=== PATIENT | female | born 1985 | race Caucasian/White ===

== ENCOUNTER 2017-05-20 11:47 | Emergency (ER) | payer OTHER ==
[~2017-05-20] VITALS: Ht 167.6 cm; Wt 99.6 kg
[2017-05-20 11:52] VITALS: TEMP 36.9; Ht 167.6 cm; Wt 99.6 kg
[2017-05-20] MEDS ORDERED: LEVO125T72 PO (12:11)
[2017-05-20] MEDS ORDERED: CEPHALEXIN MONOHYDRATE 250 MG CAP PO STA (12:16)
[2017-05-20] MEDS ORDERED: XYLOCAINE 1%/SOD BICARB 20 ML VIAL INFIL STA (12:16)
[2017-05-20] MEDS ORDERED: SULFAMETHOXAZOLE/TRIMETHOPRIM DS 800/160MG TAB PO STA (12:16)
--- NOTE | 2017-05-20 12:19 | EMERGENCY ROOM VISIT NOTE ---
History Report prepared by Dominga: Wes Ca Under the Supervision of: Dr. Campos Goff M.D. First contact with patient: 12:03 Chief Complaint: BITE Stated Complaint: BITE ON RIGHT FOOT History of Present Illness The patient is a 31 year old female who presents to the Emergency Room with complaints of a persistent wound on her right nunn and foot that she noticed yesterday. The patient says that she does not remember scraping her right foot. She adds that she has been having associated pain around the area, but does not want any pain medications currently. She rates her pain as a 7 out of 10 in severity. The patient has multiple sores to her right arm, but she says that those are from when she had a virus when she was younger. Source of History: patient Onset: Noticed yesterday Position: ankle (right) Quality: other (wound) Timing: other (persistent) Note: Associated symptoms: Right ankle and foot pain. Review of Systems See HPI for pertinent positives & negatives. A total of 10 systems reviewed and were otherwise negative. Past Medical & Surgical Medical Problems: (1) Hypothyroidism Family History No pertinent family history Social History Marital Status: Housing Status: lives with family Occupation Status: unemployed Current/Historical Medications Scheduled Cephalexin Monohydrate (Keflex), 1 CAP PO QID Levothyroxine Sodium (Synthroid), 125 MCG PO DAILY Sulfa/Trimethoprim (Bactrim Ds 800MG/160MG), 1 TAB PO BID Allergies Coded Allergies: No Known Allergies (Unverified , 05/20/17) Physical Exam Vital Signs Date Time Temp Pulse Resp B/P (MAP) Pulse Ox O2 Delivery O2 Flow Rate FiO2 05/20/17 13:13 74 16 124/76 97 05/20/17 11:52 36.9 67 16 122/79 95 Physical Exam GENERAL: Patient is a healthy-appearing well-nourished 31 year old female. HEAD: Normocephalic atraumatic EYES: Ocular movements intact pupils equal and react to light OROPHARYNX mucous membranes are moist no exudates present no erythema or edema present NECK: Supple no nuchal rigidity CHEST: Good equal expansion LUNGS: Clear and equal to auscultation CARDIAC: Normal S1 and S2 ABDOMEN: Soft nontender no guarding BACK: No CVA tenderness EXTREMITIES: Abscess that is actively draining puss to right ankle area that is 2 inches by 2 inches. Ankle has good range of motion free of pain, no evidence of ankle involvement of the infection. NEURO: Patient is following commands and answering questions appropriately. Alert and oriented x3 Cranial Nerves 2-12 grossly intact Medical Decision & Procedures Medications Administered Medications (Trade) Dose Ordered Sig/Nahomi Route Start Time Stop Time Status Last Admin Dose Admin Cephalexin Monohydrate (Keflex Cap) 500 mg NOW STAT PO 05/20/17 12:16 05/20/17 12:18 DC 05/20/17 12:31 500 MG Trimethoprim/ Sulfamethoxazole (Septra Ds 800/ 160MG Tab) 1 tab NOW STAT PO 05/20/17 12:16 05/20/17 12:18 DC 05/20/17 12:31 1 TAB Lidocaine HCl (Buffered Lidocaine 1% Inj) 20 ml NOW STAT INFIL 05/20/17 12:16 05/20/17 12:19 DC 05/20/17 12:30 20 ML Procedure Incision & Drainage Indication: Abscess. Location: Right ankle. Verbal consent was obtained after the risks and benefits were explained, including but not limited to bleeding, scarring, infection, pain, and bone/joint /nerve damage. At this time, the risks of the procedure are less than the risks of NOT performing the procedure. A time out was taken and the correct patient and site identified. The skin was prepped with betadine and a sterile field set. The wound was anesthetized with 4 ml of 1% lidocaine without epinephrine. The abscess cavity was entered with a number 11 blade and purulent material expressed. Copious irrigation was performed using normal saline. The wound was explored for foreign bodies and none found. Debridement was not performed. Packing placed and a sterile dressing applied. Detailed wound care instructions and signs and symptoms of worsening infection reviewed with the patient. No complications and the patient tolerated the procedure well. ED Course 1213: Past medical records reviewed. The patient was evaluated in room A4B. A complete history and physical examination was performed. 1216: Ordered Buffered Lidocaine 1% Inj 20 ml INFIL, Septra Ds 800/160MG Tab 1 tab PO, Keflex Cap 500 mg PO. 1258: Upon reexamination the patient is resting comfortably. I discussed results and treatment plan with the patient. she verbalizes agreement and understanding. The patient is ready for discharge. Medical Decision Differential diagnosis: Etiologies such as cellulitis, abscess, MRSA infection, DVT, necrotizing fasciitis, dermatitis, drug eruption, as well as others were entertained. This is a 31-year-old female who presents to the emergency department complaining of abscess to her right lower extremity. It is actively leaking pus. There does not appear to be any evidence of involvement with the ankle joint as the patient has good range of motion of the ankle free from pain. Based on this the abscess was drained as above. I will place the patient on Keflex and Bactrim pending culture results. Patient denied needing anything for pain and was in agreement with the treatment plan. She will return if 48 hours for a recheck of the abscess. Patient was in agreement with the treatment plan. Medication Reconcilliation Current Medication List: was personally reviewed by me Blood Pressure Screening Patient's blood pressure: Normal blood pressure Impression Primary Impression: Abscess Scribe Attestation The scribe's documentation has been prepared under my direction and personally reviewed by me in its entirety. I confirm that the note above accurately reflects all work, treatment, procedures, and medical decision making performed by me. Departure Information Dispostion Home / Self-Care Prescriptions Sulfa/Trimethoprim (Bactrim Ds 800MG/160MG) Tab 1 TAB PO BID for 10 Days, #20 TAB Prov: Campos Goff MD 05/20/17 Cephalexin Monohydrate (Keflex) 500 Mg Cap 1 CAP PO QID for 10 Days, #40 CAP Prov: Campos Goff MD 05/20/17 Referrals Vicky Ta M.D. (PCP) Patient Instructions ED Abscess IandD, My [facility] Additional Instructions Return in 48 hours for wound recheck Take 600 mg Ibuprofen every 6 hours Culture results are usually available in approx 48 hours You have been examined and treated today on an emergency basis only. This is not a substitute for, or an effort to provide, complete comprehensive medical care. It is impossible to recognize and treat all injuries or illnesses in a single emergency department visit. It is therefore important that you follow up closely with Dr Ta. Call as soon as possible for an appointment. Thank you for your time and consideration. I look forward to speaking with you again soon. Please don't hesitate to call us if you have any questions.
[2017-05-20] MEDS ORDERED: SULF800T23 PO (13:02)
[2017-05-20] MEDS ORDERED: CEPH500C PO (13:02)
[2017-05-20 13:13] VITALS: BP 124/76; PULSE 74; O2SAT 97
== END 2017-05-20 13:15 | disposition home or self-care (01) ==
LOC: C.EDB 11:48 → C.EDA 13:15
DX: L02.415 Cutaneous abscess of right lower limb (principal); E03.9 Hypothyroidism, unspecified; Z79.899 Other long term (current) drug therapy

== ENCOUNTER 2017-05-22 13:59 | Emergency (ER) | payer OTHER ==
[~2017-05-22] VITALS: Ht 165.1 cm; Wt 100.2 kg
[~2017-05-22 13:59] MED LIST: CEPH500C PO; LEVO125T72 PO; SULF800T23 PO
[2017-05-22 14:04] VITALS: TEMP 36.5; Ht 165.1 cm; Wt 100.2 kg
[2017-05-22] MEDS ORDERED: XYLOCAINE 1%/SOD BICARB 20 ML VIAL INFIL STA (14:30)
[2017-05-22] MEDS ORDERED: XYLOCAINE 1%/SOD BICARB 20 ML VIAL INFIL ONE (14:30)
--- NOTE | 2017-05-22 14:38 | EMERGENCY ROOM VISIT NOTE ---
History Report prepared by Leelaibe: Mindi Craft Under the Supervision of: Dr. Campos Goff M.D. First contact with patient: 14:28 Chief Complaint: WOUND RECHECK Stated Complaint: RECHECK FROM SATURDAY History of Present Illness The patient is a 31 year old female who presents to the Emergency Room for a wound recheck. She was seen in the ED yesterday for a wound on her right foot. The patient states she has not has any drainage since yesterday. She also denies any no pain or fevers . Source of History: patient Onset: yesterday Position: foot (right) Quality: other (wound recheck) Associated Symptoms: No fevers Note: No wound pain Review of Systems See HPI for pertinent positives & negatives. A total of 6 systems reviewed and were otherwise negative. Past Medical & Surgical Medical Problems: (1) Hypothyroidism Family History No pertinent family history Social History Smoking Status: Never Smoker Marital Status: Housing Status: lives with family Occupation Status: unemployed Current/Historical Medications Scheduled Cephalexin Monohydrate (Keflex), 1 CAP PO QID Levothyroxine Sodium (Synthroid), 125 MCG PO HS Allergies Coded Allergies: No Known Allergies (Unverified , 05/22/17) Physical Exam Vital Signs Date Time Temp Pulse Resp B/P (MAP) Pulse Ox O2 Delivery O2 Flow Rate FiO2 05/22/17 15:29 63 18 109/77 99 05/22/17 14:04 36.5 65 18 115/81 98 Room Air Physical Exam GENERAL: Patient is a healthy-appearing well-nourished female HEAD: Normocephalic atraumatic EYES: Ocular movements intact pupils equal and react to light OROPHARYNX mucous membranes are moist no exudates present no erythema or edema present NECK: Supple no nuchal rigidity CHEST: Good equal expansion LUNGS: Clear and equal to auscultation CARDIAC: Normal S1 and S2 ABDOMEN: Soft nontender no guarding BACK: No CVA tenderness EXTREMITIES: No pain upon palpation normal muscle strength in all groups no clubbing or cyanosis. .2 x 2 cm abscess on right foot. Small amount of pus extracted and it appears to be healing well. NEURO: Patient is following commands and answering questions appropriately. Alert and oriented x3 Cranial Nerves 2-12 grossly intact Medical Decision & Procedures Procedure Incision & Drainage Indication: Abscess. Location: ankle Verbal consent was obtained after the risks and benefits were explained, including but not limited to bleeding, scarring, infection, pain, and bone/joint /nerve damage. At this time, the risks of the procedure are less than the risks of NOT performing the procedure. A time out was taken and the correct patient and site identified. The skin was prepped with betadine and a sterile field set. The wound was anesthetized with [] ml of 1% lidocaine without epinephrine. The abscess cavity was entered with a number 11 blade and bloody material expressed. Copious irrigation was performed using NSS. The wound was explored for foreign bodies and none found. Debridement was not performed. Ssterile dressing applied. Detailed wound care instructions and signs and symptoms of worsening infection reviewed with the patient. No complications and the patient tolerated the procedure well. ED Course 1428: Past medical records reviewed. The patient was evaluated in room D9. A complete history and physical examination was performed. 1430: Ordered Buffered Lidocaine 1% Inj 20 INFIL. 1450: Upon reexamination the patient is resting comfortably. I discussed results and treatment plan with the patient. She verbalizes agreement and understanding. The patient is ready for discharge. Medical Decision Differential diagnosis: Etiologies such as cellulitis, abscess, MRSA infection, DVT, necrotizing fasciitis, dermatitis, drug eruption, as well as others were entertained. This is a 31-year-old female who presents emergency department for a wound recheck. The patient has a small amount of pus that is still being expressed from the wound therefore it was drained again as above. The patient is going out of staff therefore the patient can stop her Keflex and be continued on Bactrim. Patient was in agreement with the treatment plan. Impression Primary Impression: Encounter for wound re-check Scribe Attestation The scribe's documentation has been prepared under my direction and personally reviewed by me in its entirety. I confirm that the note above accurately reflects all work, treatment, procedures, and medical decision making performed by me. Departure Information Dispostion Home / Self-Care Referrals Vicky Ta M.D. (PCP) Forms HOME CARE DOCUMENTATION FORM, IMPORTANT VISIT INFORMATION, WORK / SCHOOL INSTRUCTIONS Patient Instructions ED Abscess IandD, My [facility] Additional Instructions STOP taking Keflex Continue Bactrim You have been examined and treated today on an emergency basis only. This is not a substitute for, or an effort to provide, complete comprehensive medical care. It is impossible to recognize and treat all injuries or illnesses in a single emergency department visit. It is therefore important that you follow up closely with Dr Ta. Call as soon as possible for an appointment. Thank you for your time and consideration. I look forward to speaking with you again soon. Please don't hesitate to call us if you have any questions.
[2017-05-22 15:29] VITALS: BP 109/77; PULSE 63; O2SAT 99
== END 2017-05-22 15:29 | disposition home or self-care (01) ==
LOC: C.EDB 14:02 → C.EDD 15:29
DX: Z09 Encounter for follow-up examination after completed treatment for conditions other than malignant neoplasm (principal); L02.611 Cutaneous abscess of right foot; E03.9 Hypothyroidism, unspecified; Z79.899 Other long term (current) drug therapy

== ENCOUNTER 2020-07-22 19:40 | Inpatient (IN) ==
--- NOTE | 2020-07-22 20:29 | XRay Report ---
XR chest 1V portable HISTORY: 34 years-old Female weakness acute weakness COMPARISON: None TECHNIQUE: Portable upright AP view of the chest FINDINGS: Cardiomediastinal and hilar silhouettes are within normal limits. No pneumothorax, pleural effusion, airspace consolidation or overt pulmonary edema. Bones of the chest appear grossly intact. IMPRESSION: No acute process. ACT 112: Negative or not required by law. The above report was generated using voice recognition software. It may contain grammatical, syntax o r spelling errors. Electronically signed by: Vijay Villegas M.D. 07/22/2020 8:28 PM
[2020-07-22 20:37] LABS: Basophils # (auto) 0.02 K/uL (0-0.2); Basophils % (auto) 0.3 %; Eosinophils # (auto) 0.02 K/uL (0-0.5); Eosinophils % (auto) 0.3 %; Hematocrit (blood only) 37.2 % (37-47); Hemoglobin 12.2 g/dL (12.0-16.0); Immature Granulocytes # (auto) 0.02 K/uL (0.00-0.02); Immature Granulocytes % (auto) 0.3 %; Lymphocytes # (auto) 1.82 K/uL (1.2-3.4); Lymphocytes % (auto) 25.9 %; Mean Corpuscular Hgb Conc 32.8 g/dL (32-36); Mean Corpuscular Volume 85.5 fL (80-100); Mean Platelet Volume 10.3 fL (7.4-10.4); Monocytes # (auto) 0.67 K/uL (0.11-0.59); Monocytes % (auto) 9.5 %; Neutrophils # (auto) 4.47 K/uL (1.4-6.5); Neutrophils % (auto) 63.7 %; Platelet Count 516 K/uL (130-400); RDW Coefficient of Variation 16.1 % (11.5-14.5); RDW Standard Deviation 47.9 fL (36.4-46.3); Red Blood Count 4.35 M/uL (4.2-5.4); White Blood Count 7.02 K/uL (4.8-10.8)
[2020-07-22] MEDS ORDERED: MULTI-VITAMIN INFUSION 10 ML, THIAMINE HCL 100 MG, FOLIC ACID 1 MG in SODIUM CHLORIDE 0... IV ONE (20:39)
[2020-07-22] MEDS ORDERED: THIAMINE HCL 200 MG in SODIUM CHLORIDE 0.9% 50 ML IV STA (20:39)
[2020-07-22 20:56] LABS: Alanine Aminotransferase 50 U/L (12-78); Aspartate Aminotransferase 29 U/L (15-37); BUN Creatinine Ratio 11.1 (10-20); Blood Urea Nitrogen 10 mg/dl (7-18); Calcium 9.5 mg/dl (8.5-10.1); Carbon Dioxide 25 mmol/L (21-32); Chloride 112 mmol/L (98-107); Est GFR (African American) 99.4; Est GFR (Non-African American) 85.8; Glucose 108 mg/dl (70-99); Potassium 3.2 mmol/L (3.5-5.1); Sodium 144 mmol/L (136-145)
--- NOTE | 2020-07-22 21:01 | Emergency Department Note ---
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 The patient initially presented to [facility] from her present facility for syncopal episode and had CT scan of her chest that was unremarkable. She was then referred to [facility] for further evaluation of her lower extremity weakness. She had MRI of the brain that was suggestive of Wernicke/Korsakoff syndrome. It was noted that the patient also likely had a psychiatric component to her symptoms. It was documented that she intermittently would not cooperate with physical therapy and so this may be why the patient was not discharged to a acute rehab facility. Patient reports she was discharged yesterday and today she was unable to get up. She denies any fevers, chills, cough, congestion, nausea, vomiting, diarrhea, urinary symptoms. On arrival the patient is no acute distress, afebrile stable vital signs. She does exhibit generalized weakness of her extremities with 4/5 strength. She does have notable ataxia of her bilateral lower extremities with subtle dysmetria of upper extremities. She has bilateral horizontal and vertical nystagmus. Patient's neck is supple with full range of motion. Given she is afebrile and prolonged symptoms, meningitis is unlikely. EKG without overt acute ischemia. Chest x-ray negative for acute process. CT of the head negative for acute process. WBC within normal limits. H/H within normal limits. Platelets 516, nonspecific. ESR 37 and CRP within normal limits. Electrolytes and LFTs unremarkable. UA with epithelial cells therefore will defer treatment at this time. Lyme screen was negative. Considering the patient's recent weeklong admission at outside hospital with extensive testing including brain MRI will defer additional imaging at this time. Given the patient's ambulatory dysfunction reasonable to admit the patient for further evaluation and likely placement into acute rehab. Case was discussed with Dr. Rankin, [facility], who will evaluate the patient for admission. Triage Nursing notes reviewed and agree them. [facility] records reviewed Vital Signs: reviewed and remarkable for no significant abnormalities Differential diagnosis: Infection, dehydration, metabolic abnormality, hypo/hyperglycemia, electrolyte disturbance, anemia, hypoxia, cardiac sources, intracerebral event, toxicologic, neurologic, as well as other pathologies. ER treatment provided: See below. Diagnostics interpreted by me: ECG: Sinus tachycardia, 108 bpm, no ectopy, no overt ST elevation or depression, QTC 466, QRS 82. Cardiac Monitoring: An order for continuous cardiac monitoring was placed and demonstrated tachycardia, 108 bpm, no ectopy. Laboratory studies: See below Imaging studies: CT SCAN OF THE BRAIN WITHOUT IV CONTRAST CLINICAL HISTORY: Extremity weakness. COMPARISON STUDY: No priors. TECHNIQUE: Unenhanced axial CT scan of the brain is performed from the vertex to the skull base. A dose lowering technique was utilized adhering to the principles of ALARA. CT DOSE: 537.48 mGy.cm FINDINGS: Brain parenchyma: The brain parenchyma is normal in appearance. There is no hemorrhage, mass effect, or evidence of acute territorial ischemia by CT criteria. Sadler-white matter differentiation is preserved. No extra-axial fluid collection is seen. Ventricles, sulci, cisterns: Normal in configuration. Intracranial vasculature: The visualized intracranial vasculature at the skull base is normal in appearance. Calvarium: Unremarkable. Sinuses and mastoids: The visualized paranasal sinuses are clear. The mastoid air cells are well pneumatized. Orbits: The bony orbits are grossly intact. IMPRESSION: No acute intracranial abnormality. -- XR chest 1V portable HISTORY: 34 years-old Female weakness acute weakness COMPARISON: None TECHNIQUE: Portable upright AP view of the chest FINDINGS: Cardiomediastinal and hilar silhouettes are within normal limits. No pneumothorax, pleural effusion, airspace consolidation or overt pulmonary edema. Bones of the chest appear grossly intact. IMPRESSION: No acute process. Consultation(s): Case was discussed with [facility], who will evaluate the patient for admission. 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 The patient initially presented to [facility] from her present facility for syncopal episode and had CT scan of her chest that was unremarkable. She was then referred to [facility] for further evaluation of her lower extremity weakness. She had MRI of the brain that was suggestive of Wernicke/Korsakoff syndrome. It was noted that the patient also likely had a psychiatric component to her symptoms. It was documented that she intermittently would not cooperate with physical therapy and so this may be why the patient was not discharged to a acute rehab facility. Patient reports she was discharged yesterday and today she was unable to get up. She denies any fevers, chills, cough, congestion, nausea, vomiting, diarrhea, urinary symptoms. Arrival the patient is no acute distress, afebrile stable vital signs. ROS: See above HPI for pertinent positives & negatives. A total of 10 systems reviewed and were otherwise negative. PAST MEDICAL HISTORY:See Below PAST SURGICAL HISTORY:See Below FAMILY HISTORY:See Below SOCIAL HISTORY:See Below HOME MEDICATIONS:See Below ALLERGIES:See Below VITALS:See Below PHYSICAL EXAMINATION: GENERAL: Awake, alert, well-appearing, in no distress HENT: Normocephalic, atraumatic. Oropharynx with dry mucous membranes and otherwise unremarkable. Poor dentition. EYES: Normal conjunctiva. Sclera non-icteric. Horizontal and vertical nystagmus laterally. NECK: Supple. No nuchal rigidity. FROM. No JVD. RESPIRATORY: Clear to auscultation. CARDIAC: Regular rate, normal rhythm. Extremities warm and well perfused. Pulses equal. ABDOMEN: Soft, non-distended. No tenderness to palpation. No rebound or guarding. No masses. RECTAL: Deferred. MUSCULOSKELETAL: Chest examination reveals no tenderness. The back is symmetrical on inspection without obvious abnormality. There is no CVA tenderness to palpation. No joint edema. LOWER EXTREMITIES: Calves are equal size bilaterally and non-tender. No edema. No discoloration. NEURO: Normal sensorium. No sensory or motor deficits noted. 4/5 strength in all extremities. Ataxia of bilateral lower extremities with mild dysmetria of bilateral upper extremities. DTRs within normal limits. No clonus. SKIN: No rash or jaundice noted. Kingsley Aguilar MD Past Med/Surg History Medical History Acute hypokalemia Hypothyroidism Korsakoff's psychosis or syndrome (nonalcoholic) Social History Smoking Status: Never smoker Hx Alcohol Use: Yes Hx Substance Use: No Preferred Language: Vietnamese Communication Ability: Effective [employer] Supervisor Required: No Beliefs That Will Affect Care: None Current Living Situation: Spouse and Parent Other Information That Helps Us Care for You: No Feels Safe at Home: Yes Safety Concerns: Feels Safe At This Time Assistive Devices: None Allergies Allergies Allergy/AdvReac Type Severity Reaction Status Date / Time No Known Allergies Allergy Verified 07/22/20 23:16 Home Meds Home Medications Medication Instructions Recorded Confirmed cyanocobalamin (vitamin B-12) 1,000 mcg PO DAILY 07/22/20 07/22/20 [Vitamin B-12] ergocalciferol (vitamin D2) 1,250 mcg PO WK 07/22/20 07/22/20 [Vitamin D2] levothyroxine 100 mcg PO HS 07/22/20 07/22/20 mirtazapine 15 mg PO HS 07/22/20 07/22/20 pantoprazole 40 mg PO BID 07/22/20 07/22/20 thiamine HCl (vitamin B1) [Vitamin 100 mg PO DAILY 07/22/20 07/22/20 B-1] Results & Data (ED) Vital Signs Vital Signs - 24 hr 07/22/20 19:45 07/22/20 19:54 07/22/20 20:00 Temperature 37.2 C Temperature Source Oral Pulse Rate 122 H 111 H 114 H Pulse Rate from SpO2 Sensor 110 H 113 H Pulse Rhythm Regular Pulse Strength Normal Respiratory Rate 20 19 21 Respiratory Effort / Characteristics Non-Labored Spontaneous Respiratory Depth Normal Respiratory Pattern Regular Blood Pressure 126/85 109/97 124/89 Blood Pressure Mean 98 100 93 Blood Pressure Position Sitting Pulse Oximetry 100 96 100 Oxygen Delivery Method Room Air Room Air Sepsis Recent Fever Within 48 Hours No Sepsis New/Unexplained Change in Mental Status N/A Sepsis Action Taken by Nursing No Action Required 07/22/20 20:30 07/22/20 21:30 07/22/20 22:00 Temperature Temperature Source Pulse Rate 99 H 103 H 105 H Pulse Rate from SpO2 Sensor 102 H 101 H 106 H Pulse Rhythm Pulse Strength Respiratory Rate 17 15 25 H Respiratory Effort / Characteristics Respiratory Depth Respiratory Pattern Blood Pressure 128/93 117/88 121/91 Blood Pressure Mean 102 94 101 Blood Pressure Position Pulse Oximetry 99 100 100 Oxygen Delivery Method Room Air Sepsis Recent Fever Within 48 Hours Sepsis New/Unexplained Change in Mental Status Sepsis Action Taken by Nursing 07/22/20 22:30 07/22/20 23:00 07/22/20 23:30 Temperature Temperature Source Pulse Rate 110 H 100 H 90 Pulse Rate from SpO2 Sensor 106 H 101 H 89 Pulse Rhythm Pulse Strength Respiratory Rate 13 18 14 Respiratory Effort / Characteristics Respiratory Depth Respiratory Pattern Blood Pressure 126/82 136/92 115/71 Blood Pressure Mean 98 97 75 Blood Pressure Position Pulse Oximetry 98 99 99 Oxygen Delivery Method Sepsis Recent Fever Within 48 Hours Sepsis New/Unexplained Change in Mental Status Sepsis Action Taken by Nursing 07/23/20 00:00 Temperature Temperature Source Pulse Rate 95 H Pulse Rate from SpO2 Sensor 93 H Pulse Rhythm Pulse Strength Respiratory Rate 13 Respiratory Effort / Characteristics Respiratory Depth Respiratory Pattern Blood Pressure 126/74 Blood Pressure Mean 91 Blood Pressure Position Pulse Oximetry 99 Oxygen Delivery Method Sepsis Recent Fever Within 48 Hours Sepsis New/Unexplained Change in Mental Status Sepsis Action Taken by Nursing Laboratory Data Attestation: I reviewed the patient's lab results. Result diagrams: 07/23/20 05:27 07/23/20 05:27 Lab Results 07/22/20 07/22/20 07/22/20 Range/Units 20:25 20:25 20:25 WBC 7.02 (4.8-10.8) K/uL RBC 4.35 (4.2-5.4) M/uL Hgb 12.2 (12.0-16.0) g/dL Hct 37.2 (37-47) % MCV 85.5 (80-100) fL MCH 28.0 (25-34) pg MCHC 32.8 (32-36) g/dL RDW Std Deviation 47.9 H (36.4-46.3) fL RDW Coeff of Yuliya 16.1 H (11.5-14.5) % Plt Count 516 H (130-400) K/uL MPV 10.3 (7.4-10.4) fL Immature Gran % (Auto) 0.3 % Neut % (Auto) 63.7 % Lymph % (Auto) 25.9 % [place] % (Auto) 9.5 % Eos % (Auto) 0.3 % Baso % (Auto) 0.3 % Neut # (Auto) 4.47 (1.4-6.5) K/uL Lymph # (Auto) 1.82 (1.2-3.4) K/uL [place] # (Auto) 0.67 H (0.11-0.59) K/uL Eos # (Auto) 0.02 (0-0.5) K/uL Baso # (Auto) 0.02 (0-0.2) K/uL Immature Gran # (Auto) 0.02 (0.00-0.02) K/uL ESR 37 H (0-21) mm/hr Sodium 144 (136-145) mmol/L Potassium 3.2 L (3.5-5.1) mmol/L Chloride 112 H (98-107) mmol/L Carbon Dioxide 25 (21-32) mmol/L Anion Gap 7.0 (3-11) BUN 10 (7-18) mg/dl Creatinine 0.89 (0.6-1.2) mg/dl Est Cr Clr Drug Dosing Not Reportable Est GFR ( Amer) 99.4 Est GFR (Non-Af Amer) 85.8 BUN/Creatinine Ratio 11.1 (10-20) Glucose 108 H (70-99) mg/dl Calcium 9.5 (8.5-10.1) mg/dl Phosphorus (2.5-4.9) mg/dl Magnesium (1.8-2.4) mg/dl Total Bilirubin 0.7 (0.2-1) mg/dl AST 29 (15-37) U/L ALT 50 (12-78) U/L Alkaline Phosphatase 79 (45-117) U/L Total Creatine Kinase (26-192) U/L Troponin I < 0.015 (0-0.045) ng/ml C-Reactive Protein (0-0.29) mg/dl Total Protein 6.9 (6.4-8.2) gm/dl Albumin 3.0 L (3.4-5.0) gm/dl Globulin 3.9 (2.5-4.0) gm/dl Albumin/Globulin Ratio 0.8 L (0.9-2) TSH 2.770 (0.300-4.500) uIu/ml HCG, Qual (Negative) Urine Color Urine Appearance (Clear) Urine pH (4.5-7.5) Ur Specific [place] (1.000-1.030) Urine Protein (Negative) Urine Glucose (UA) (Negative) Urine Ketones (Negative) Urine Blood (Negative) Urine Nitrite (Negative) Urine Bilirubin (Negative) Urine Urobilinogen (Negative) Ur Leukocyte Esterase (Negative) Urine WBC (Auto) (0-5) /hpf Urine RBC (Auto) (0-4) /hpf U Hyaline Cast (Auto) (0-5) /lpf U Epithel Cells (Auto) (0-5) /lpf Urine Bacteria (Auto) (Negative) Urine Yeast Urine Opiates Screen (Neg) Ur Methadone, Qual (Neg) Urine Barbiturates (Neg) Ur Phencyclidine (PCP) (Neg) U Amphetamin/Meth Scrn (Neg) MDMA (Ecstasy) Screen (Neg) U Benzodiazepines Scrn (Neg) Ur Cocaine Metabolite (Neg) U Marijuana (THC) Screen (Neg) Ethyl Alcohol mg/dL (0-3) mg/dl Lyme Disease IgG Ab (Negative) Lyme Disease IgM Ab (Negative) 07/22/20 07/22/20 07/22/20 Range/Units 20:25 20:29 21:13 WBC (4.8-10.8) K/uL RBC (4.2-5.4) M/uL Hgb (12.0-16.0) g/dL Hct (37-47) % MCV (80-100) fL MCH (25-34) pg MCHC (32-36) g/dL RDW Std Deviation (36.4-46.3) fL RDW Coeff of Yuliya (11.5-14.5) % Plt Count (130-400) K/uL MPV (7.4-10.4) fL Immature Gran % (Auto) % Neut % (Auto) % Lymph % (Auto) % [place] % (Auto) % Eos % (Auto) % Baso % (Auto) % Neut # (Auto) (1.4-6.5) K/uL Lymph # (Auto) (1.2-3.4) K/uL [place] # (Auto) (0.11-0.59) K/uL Eos # (Auto) (0-0.5) K/uL Baso # (Auto) (0-0.2) K/uL Immature Gran # (Auto) (0.00-0.02) K/uL ESR (0-21) mm/hr Sodium (136-145) mmol/L Potassium (3.5-5.1) mmol/L Chloride (98-107) mmol/L Carbon Dioxide (21-32) mmol/L Anion Gap (3-11) BUN (7-18) mg/dl Creatinine (0.6-1.2) mg/dl Est Cr Clr Drug Dosing Est GFR ( Amer) Est GFR (Non-Af Amer) BUN/Creatinine Ratio (10-20) Glucose (70-99) mg/dl Calcium (8.5-10.1) mg/dl Phosphorus 3.7 (2.5-4.9) mg/dl Magnesium 1.9 (1.8-2.4) mg/dl Total Bilirubin (0.2-1) mg/dl AST (15-37) U/L ALT (12-78) U/L Alkaline Phosphatase (45-117) U/L Total Creatine Kinase 29 (26-192) U/L Troponin I (0-0.045) ng/ml C-Reactive Protein < 0.29 (0-0.29) mg/dl Total Protein (6.4-8.2) gm/dl Albumin (3.4-5.0) gm/dl Globulin (2.5-4.0) gm/dl Albumin/Globulin Ratio (0.9-2) TSH (0.300-4.500) uIu/ml HCG, Qual Negative (Negative) Urine Color Urine Appearance (Clear) Urine pH (4.5-7.5) Ur Specific [place] (1.000-1.030) Urine Protein (Negative) Urine Glucose (UA) (Negative) Urine Ketones (Negative) Urine Blood (Negative) Urine Nitrite (Negative) Urine Bilirubin (Negative) Urine Urobilinogen (Negative) Ur Leukocyte Esterase (Negative) Urine WBC (Auto) (0-5) /hpf Urine RBC (Auto) (0-4) /hpf U Hyaline Cast (Auto) (0-5) /lpf U Epithel Cells (Auto) (0-5) /lpf Urine Bacteria (Auto) (Negative) Urine Yeast Urine Opiates Screen (Neg) Ur Methadone, Qual (Neg) Urine Barbiturates (Neg) Ur Phencyclidine (PCP) (Neg) U Amphetamin/Meth Scrn (Neg) MDMA (Ecstasy) Screen (Neg) U Benzodiazepines Scrn (Neg) Ur Cocaine Metabolite (Neg) U Marijuana (THC) Screen (Neg) Ethyl Alcohol mg/dL < 3.0 (0-3) mg/dl Lyme Disease IgG Ab Negative (Negative) Lyme Disease IgM Ab Negative (Negative) 07/22/20 07/22/20 Range/Units 23:35 23:35 WBC (4.8-10.8) K/uL RBC (4.2-5.4) M/uL Hgb (12.0-16.0) g/dL Hct (37-47) % MCV (80-100) fL MCH (25-34) pg MCHC (32-36) g/dL RDW Std Deviation (36.4-46.3) fL RDW Coeff of Yuliya (11.5-14.5) % Plt Count (130-400) K/uL MPV (7.4-10.4) fL Immature Gran % (Auto) % Neut % (Auto) % Lymph % (Auto) % [place] % (Auto) % Eos % (Auto) % Baso % (Auto) % Neut # (Auto) (1.4-6.5) K/uL Lymph # (Auto) (1.2-3.4) K/uL [place] # (Auto) (0.11-0.59) K/uL Eos # (Auto) (0-0.5) K/uL Baso # (Auto) (0-0.2) K/uL Immature Gran # (Auto) (0.00-0.02) K/uL ESR (0-21) mm/hr Sodium (136-145) mmol/L Potassium (3.5-5.1) mmol/L Chloride (98-107) mmol/L Carbon Dioxide (21-32) mmol/L Anion Gap (3-11) BUN (7-18) mg/dl Creatinine (0.6-1.2) mg/dl Est Cr Clr Drug Dosing Est GFR ( Amer) Est GFR (Non-Af Amer) BUN/Creatinine Ratio (10-20) Glucose (70-99) mg/dl Calcium (8.5-10.1) mg/dl Phosphorus (2.5-4.9) mg/dl Magnesium (1.8-2.4) mg/dl Total Bilirubin (0.2-1) mg/dl AST (15-37) U/L ALT (12-78) U/L Alkaline Phosphatase (45-117) U/L Total Creatine Kinase (26-192) U/L Troponin I (0-0.045) ng/ml C-Reactive Protein (0-0.29) mg/dl Total Protein (6.4-8.2) gm/dl Albumin (3.4-5.0) gm/dl Globulin (2.5-4.0) gm/dl Albumin/Globulin Ratio (0.9-2) TSH (0.300-4.500) uIu/ml HCG, Qual (Negative) Urine Color Dark Yellow Urine Appearance Cloudy A (Clear) Urine pH 6.0 (4.5-7.5) Ur Specific [place] 1.018 (1.000-1.030) Urine Protein Negative (Negative) Urine Glucose (UA) Negative (Negative) Urine Ketones Trace H (Negative) Urine Blood Negative (Negative) Urine Nitrite Positive A (Negative) Urine Bilirubin Negative (Negative) Urine Urobilinogen Negative (Negative) Ur Leukocyte Esterase 1+ H (Negative) Urine WBC (Auto) >30 H (0-5) /hpf Urine RBC (Auto) 0-4 (0-4) /hpf U Hyaline Cast (Auto) 1-5 (0-5) /lpf U Epithel Cells (Auto) >30 H (0-5) /lpf Urine Bacteria (Auto) 4+ H (Negative) Urine Yeast Not Reportable Urine Opiates Screen Neg (Neg) Ur Methadone, Qual Neg (Neg) Urine Barbiturates Neg (Neg) Ur Phencyclidine (PCP) Neg (Neg) U Amphetamin/Meth Scrn Neg (Neg) MDMA (Ecstasy) Screen Neg (Neg) U Benzodiazepines Scrn Neg (Neg) Ur Cocaine Metabolite Neg (Neg) U Marijuana (THC) Screen Neg (Neg) Ethyl Alcohol mg/dL (0-3) mg/dl Lyme Disease IgG Ab (Negative) Lyme Disease IgM Ab (Negative) Administered Medications Cyanocobalamin (Cyanocobalamin 500 Mcg Tablet (Vitamin B-12)) 1,000 mcg PO DAILY CARMELLA Stop: 08/22/20 08:59 Last Admin: 07/23/20 08:41 Dose: 1,000 mcg Documented by: [id number] Enoxaparin Sodium (Enoxaparin Inj 40 Mg/0.4 Ml Syr) 40 mg SQ QAM CARMELLA Stop: 08/22/20 08:59 Last Admin: 07/23/20 08:40 Dose: 40 mg Documented by: [id number] Pantoprazole Sodium (Pantoprazole 40 Mg Tab) 40 mg PO BID CARMELLA Stop: 08/22/20 08:59 Last Admin: 07/23/20 08:41 Dose: 40 mg Documented by: [id number] Discontinued Medications Multivitamins 10 ml/ Thiamine HCl 100 mg/ Folic Acid 1 mg/Sodium Chloride 1,011.2 mls @ 1,011.2 mls/hr IV .Q1H ONE Stop: 07/22/20 21:38 Last Infusion: 07/22/20 22:58 Dose: 0 mls/hr Documented by: [id number] Admin: 07/22/20 21:39 Dose: 1,011.2 mls/hr Documented by: [id number] Thiamine HCl 200 mg/ Sodium (Chloride) 52 mls @ 208 mls/hr IV NOW STA Stop: 07/22/20 20:53 Last Infusion: 07/22/20 21:55 Dose: 0 mls/hr Documented by: [id number] Admin: 07/22/20 21:39 Dose: 208 mls/hr Documented by: [id number] Lactated Ringer's (Lr) 1,000 mls @ 200 mls/hr IV .Q5H ONE Stop: 07/23/20 04:41 Last Admin: 07/23/20 00:51 Dose: Not Given Documented by: [id number] Potassium Chloride 40 meq/ (Sodium Chloride) 1,020 mls @ 80 mls/hr IV .[id number] ONE Stop: 07/23/20 13:13 Last Infusion: 07/23/20 14:10 Dose: 0 mls/hr Documented by: [id number] Admin: 07/23/20 01:08 Dose: 80 mls/hr Documented by: [id number] Magnesium Sulfate/Dextrose (Magnesium Sulfate / D5w) 1 gm in 100 mls @ 50 mls/hr IV ONE ONE Stop: 07/23/20 03:50 Last Infusion: 07/23/20 04:37 Dose: 0 mls/hr Documented by: [id number] Admin: 07/23/20 02:34 Dose: 50 mls/hr Documented by: [id number] Miscellaneous (Patient's Height And/Or Weight Needed) 1 ea N/A Q2H CARMELLA Stop: 07/23/20 06:00 Last Admin: 07/23/20 02:13 Dose: Not Given Documented by: [id number] Potassium Chloride (Potassium Chloride 20 Meq Tabcr) 40 meq PO NOW STA Stop: 07/22/20 23:43 Last Admin: 07/23/20 00:35 Dose: 40 meq Documented by: [id number] Potassium Chloride (Potassium Chloride 20 Meq Tabcr) 40 meq PO ONE ONE Stop: 07/23/20 02:31 Last Admin: 07/23/20 02:34 Dose: 40 meq Documented by: [id number] Discharge Plan Visit Data Chief Complaint: Weakness Stated Complaint: WEAKNESS ED Provider: Kingsley Aguilar Discharge Problem: Korsakoff's psychosis or syndrome (nonalcoholic), Ambulatory dysfunction, Acute hypokalemia Patient Disposition: Admitted As Inpatient Discharge Instructions Interventions: ED Discharge Assessment Last Done: 07/23/20 01:31
[2020-07-22 21:06] LABS: Albumin Globulin Ratio 0.8 (0.9-2); Alkaline Phosphatase 79 U/L (45-117); Bilirubin,Total 0.7 mg/dl (0.2-1); Globulin 3.9 gm/dl (2.5-4.0); Total Protein 6.9 gm/dl (6.4-8.2); Troponin I < 0.015 ng/ml (0-0.045)
--- NOTE | 2020-07-22 21:29 | CT Scan Report ---
CT SCAN OF THE BRAIN WITHOUT IV CONTRAST CLINICAL HISTORY: Extremity weakness. COMPARISON STUDY: No priors. TECHNIQUE: Unenhanced axial CT scan of the brain is performed from the vertex to the skull base. A d ose lowering technique was utilized adhering to the principles of ALARA. CT DOSE: 537.48 mGy.cm FINDINGS: Brain parenchyma: The brain parenchyma is normal in appearance. There is no hemorrhage, mass effect, or evidence of acute territorial ischemia by CT criteria. Sadler-white matter differentiation is preser wero. No extra-axial fluid collection is seen. Ventricles, sulci, cisterns: Normal in configuration. Intracranial vasculature: The visualized intracranial vasculature at the skull base is normal in appe arance. Calvarium: Unremarkable. Sinuses and mastoids: The visualized paranasal sinuses are clear. The mastoid air cells are well pneu matized. Orbits: The bony orbits are grossly intact. IMPRESSION: No acute intracranial abnormality. ACT 112: Negative or not required by law. Electronically signed by: Ravi Fuller M.D. 07/22/2020 9:28 PM
[2020-07-22 21:34] LABS: Pregnancy Test, Serum Negative (Negative)
[2020-07-22 21:40] LABS: C Reactive Protein < 0.29 mg/dl (0-0.29); Creatine Kinase 29 U/L (26-192); Magnesium 1.9 mg/dl (1.8-2.4); Phosphorus 3.7 mg/dl (2.5-4.9)
[2020-07-22 22:05] LABS: Lyme Ab IgG w/WB Rflx Negative (Negative); Lyme Ab IgM w/WB Rflx Negative (Negative)
[2020-07-22] MEDS ORDERED: LACTATED RINGER'S 1,000 ML IV ONE (23:42)
[2020-07-22] MEDS ORDERED: POTASSIUM CHLORIDE 20 MEQ TABCR PO STA (23:42)
[2020-07-22 23:55] LABS: Appearance Urine Cloudy (Clear); Bacteria Urine Automated 4+ (Negative); Bilirubin Urine Negative (Negative); Blood Urine Negative (Negative); Color Urine Dark Yellow; Epithelial Cell Urine Auto >30 /lpf (0-5); Glucose Urine UA Negative (Negative); Ketones Urine Trace (Negative); Leukocyte Esterase Urine 1+ (Negative); Nitrite Urine Positive (Negative); Protein Urine Negative (Negative); RBC Urine Automated 0-4 /hpf (0-4); Specific Gravity Urine 1.018 (1.000-1.030); Urobilinogen Urine Negative (Negative); WBC Urine Automated >30 /hpf (0-5)
--- NOTE | 2020-07-23 00:23 | History & Physical Report ---
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 Euthyroid as of today's TSH Asymptomatic pyuria, no sepsis OBS Medical telemetry given tachycardia IVF, replace electrolytes Retrieve records of recent confinement from [facility] PT OT eval DVT prophylaxis. Lovenox subcu Full code Patient's requesting updates from providers. Mr. Jose Carlos Hagen, contact #[phone]. Text document was generated using [employer] voice recognition software. It may contain grammatical or spelling errors. Kindly contact undersigned for clarification of any documentation item in question. History of Present Illness Chief Complaint: Weakness, unable to walk Primary Care Provider: Reyna Wyman PA-C History obtained from patient, family, and records. Patient is a fair historian. Medical history significant for recent diagnosis of Korsakoff syndrome, past alcohol abuse, polycystic ovarian syndrome, hypothyroidism. Recent incarceration at a local correctional facility the last 2 months. Last month during incarceration, patient had an episode of emesis, noted to be confused and forgetful as per . As per , penitentiary guards refused to bring patient to hospital. Last week, patient had a syncopal event and mentation issues leading to confinement at [facility]. Patient diagnosed to have Korsakoff syndrome. Patient discharged back to correctional facility a few days ago mentation back to baseline. Patient released from custodial yesterday. At home, appetite fair as per . Patient however having trouble walking around, feeling weak. No headache, no chest pain, no S OB. No abdominal pain, no dysuria/urinary frequency symptoms. Patient denies recent EtOH intake since [facility] from [facility]. Patient brought to the ER for evaluation. Medical History as above Surgical History : Tonsillectomy, D&C Family History : Heart disease, diabetes Personal/Social history : Non-smoker, past alcohol abuse, currently unemployed . Allergies Allergy/AdvReac Type Severity Reaction Status Date / Time No Known Allergies Allergy Verified 07/22/20 23:16 Home Medications Home Medications Medication Instructions Recorded Confirmed Type cyanocobalamin (vitamin B-12) 1,000 mcg PO DAILY 07/22/20 07/22/20 History [Vitamin B-12] ergocalciferol (vitamin D2) 1,250 mcg PO WK 07/22/20 07/22/20 History [Vitamin D2] levothyroxine 100 mcg PO HS 07/22/20 07/22/20 History mirtazapine 15 mg PO HS 07/22/20 07/22/20 History pantoprazole 40 mg PO BID 07/22/20 07/22/20 History thiamine HCl (vitamin B1) [Vitamin 100 mg PO DAILY 07/22/20 07/22/20 History B-1] Past Med/Surg History Medical History Hypothyroidism Social History Smoking Status: Never smoker Hx Alcohol Use: Yes Hx Substance Use: No Preferred Language: Portuguese Communication Ability: Effective Internet Marketing Analyst Required: No Beliefs That Will Affect Care: None Current Living Situation: Spouse and Parent Other Information That Helps Us Care for You: No Feels Safe at Home: Yes Safety Concerns: Feels Safe At This Time Assistive Devices: Glasses Review of Systems Review of Systems: As per HPI, all 10 systems reviewed, all other ROS negative Physical Exam Physical Exam: GENERAL: Comfortable, obese, pleasant, no respiratory distress SKIN: Hirsute, normal color, warm HEENT: Bespectacled, pink palpebral conjunctivae, no ptosis, dry buccal mucosa NECK : Supple, short neck, no tenderness CHEST : CTA, no tenderness HEART : RRR, no obvious murmurs ABDOMEN: Some distention, nontender EXTREMITIES : No LE swelling/tenderness, no other conspicuous deformities noted NEUROLOGIC : Coherent, no facial asymmetry, no other gross focality Results & Data Results & [facility] ([facility]) Vital Signs (Past 12 Hours) Vital Signs Temp Pulse Resp BP Pulse Ox 07/22/20 23:00 100 H 18 136/92 99 07/22/20 22:30 110 H 13 126/82 98 07/22/20 22:00 105 H 25 H 121/91 100 07/22/20 21:30 103 H 15 117/88 100 07/22/20 20:30 99 H 17 128/93 99 07/22/20 20:00 114 H 21 124/89 100 07/22/20 19:54 111 H 19 109/97 96 07/22/20 19:45 37.2 C 122 H 20 126/85 100 Laboratory Results Laboratory Results WBC 7.02 K/uL (4.8-10.8) 07/22/20 20: RBC 4.35 M/uL (4.2-5.4) 07/22/20 20:25 Hgb 12.2 g/dL (12.0-16.0) 07/22/20 20:25 Hct 37.2 % (37-47) 07/22/20 20: MCV 85.5 fL (80-100) 07/22/20 20: MCH 28.0 pg (25-34) 07/22/20 20: MCHC 32.8 g/dL (32-36) 07/22/20: RDW Std Deviation 47.9 fL (36.4-46.3) H 07/22/20: RDW Coeff of Yuliya 16.1 % (11.5-14.5) H 07/22/20: Plt Count 516 K/uL (130-400) H 07/22/20 20:25 MPV 10.3 fL (7.4-10.4) 07/22/20 20: Immature Gran % (Auto) 0.3 % 07/22/20: Neut % (Auto) 63.7 % 07/22/20: Lymph % (Auto) 25.9 % 07/22/20: Dane % (Auto) 9.5 % 07/22/20: Eos % (Auto) 0.3 % 07/22/20: Baso % (Auto) 0.3 % 07/22/20:25 Neut # (Auto) 4.47 K/uL (1.4-6.5) 07/22/20 20: Lymph # (Auto) 1.82 K/uL (1.2-3.4) 07/22/20: Dane # (Auto) 0.67 K/uL (0.11-0.59) H 07/22/20 20:25 Eos # (Auto) 0.02 K/uL (0-0.5) 07/22/20: Baso # (Auto) 0.02 K/uL (0-0.2) 07/22/20 20:25 Immature Gran # (Auto) 0.02 K/uL (0.00-0.02) 07/22/20 20:25 ESR 37 mm/hr (0-21) H 07/22/20 20:25 Sodium 144 mmol/L (136-145) 07/22/20 20:25 Potassium 3.2 mmol/L (3.5-5.1) L 07/22/20 20:25 Chloride 112 mmol/L (98-107) H 07/22/20 20:25 Carbon Dioxide 25 mmol/L (21-32) 07/22/20 20:25 Anion Gap 7.0 (3-11) 07/22/20 20:25 BUN 10 mg/dl (7-18) 07/22/20: Creatinine 0.89 mg/dl (0.6-1.2) 07/22/20 20:25 Est Cr Clr Drug Dosing Not Reportable 07/22/20 20: Est GFR ( Amer) 99.4 07/22/20 20:25 Est GFR (Non-Af Amer) 85.8 07/22/20 20:25 BUN/Creatinine Ratio 11.1 (10-20) 07/22/20 20: Glucose 108 mg/dl (70-99) H 07/22/20 20:25 Calcium 9.5 mg/dl (8.5-10.1) 07/22/20:25 Phosphorus 3.7 mg/dl (2.5-4.9) 07/22/20 20:25 Magnesium 1.9 mg/dl (1.8-2.4) 07/22/20 20:25 Total Bilirubin 0.7 mg/dl (0.2-1) 07/22/20 20:25 AST 29 U/L (15-37) 07/22/20 20:25 ALT 50 U/L (12-78) 07/22/20 20:25 Alkaline Phosphatase 79 U/L (45-117) 07/22/20 20:25 Total Creatine Kinase 29 U/L (26-192) 07/22/20 20:25 Troponin I < 0.015 ng/ml (0-0.045) 07/22/20 20:25 C-Reactive Protein < 0.29 mg/dl (0-0.29) 07/22/20 20: Total Protein 6.9 gm/dl (6.4-8.2) 07/22/20 20: Albumin 3.0 gm/dl (3.4-5.0) L 07/22/20 20: Globulin 3.9 gm/dl (2.5-4.0) 07/22/20 20: Albumin/Globulin Ratio 0.8 (0.9-2) L 07/22/20 20: TSH 2.770 uIu/ml (0.300-4.500) 07/22/20 20: HCG, Qual Negative (Negative) 07/22/20 Urine Color Dark Yellow 07/22/20: Urine Appearance Cloudy (Clear) A 07/22/20: Urine pH 6.0 (4.5-7.5) 07/22/20 23:35 Ur Specific [place] 1.018 (1.000-1.030) 07/22/20 23: Urine Protein Negative (Negative) 07/22/20 23:35 Urine Glucose (UA) Negative (Negative) 07/22/20 23:35 Urine Ketones Trace (Negative) H 07/22/20 23:35 Urine Blood Negative (Negative) 07/22/20: Urine Nitrite Positive (Negative) A 07/22/20: Urine Bilirubin Negative (Negative) 07/22/20 23:35 Urine Urobilinogen Negative (Negative) 07/22/20 23:35 Ur Leukocyte Esterase 1+ (Negative) H 07/22/20 23:35 Ethyl Alcohol mg/dL < 3.0 mg/dl (0-3) 07/22/20 21:13 Lyme Disease IgG Ab Negative (Negative) 07/22/20 20: Lyme Disease IgM Ab Negative (Negative) 07/22/[address] head: No acute intracranial abnormality. Chest x-ray : No acute process. EKG as per my interpretation : Rate 110, sinus tachycardia, LAD, LAFB, T wave flattening lateral leads
[2020-07-23] MEDS ORDERED: POTASSIUM CHLORIDE 40 MEQ in SODIUM CHLORIDE 0.45 % 1,000 ML IV ONE (00:29)
[2020-07-23 01:26] LABS: Amphetamines+Metham, Urine Neg (Neg); Barbiturates, Urine Neg (Neg); Benzodiazepine, Urine Neg (Neg); Cocaine, Urine Neg (Neg); MDMA (Ecstacy), Urine Neg (Neg); Methadone, Urine Neg (Neg); Opiate, Urine Neg (Neg); Phencyclidine, Urine Neg (Neg)
[2020-07-23] MEDS ORDERED: MAGNESIUM SULFATE / D5W 1 GM/100 ML BAG IV ONE (01:51)
[2020-07-23] MEDS ORDERED: PROMETHAZINE HCL 12.5 MG in SODIUM CHLORIDE 0.9% 50 ML IV PRN (01:51)
[2020-07-23] MEDS ORDERED: PATIENT'S HEIGHT AND/OR WEIGHT NEEDED SCH (02:00)
[2020-07-23] MEDS ORDERED: POTASSIUM CHLORIDE 20 MEQ TABCR PO ONE (02:30)
[2020-07-23 05:38] LABS: Basophils # (auto) 0.02 K/uL (0-0.2); Basophils % (auto) 0.3 %; Eosinophils # (auto) 0.05 K/uL (0-0.5); Eosinophils % (auto) 0.7 %; Hematocrit (blood only) 34.8 % (37-47); Hemoglobin 10.8 g/dL (12.0-16.0); Immature Granulocytes # (auto) 0.02 K/uL (0.00-0.02); Immature Granulocytes % (auto) 0.3 %; Lymphocytes # (auto) 2.05 K/uL (1.2-3.4); Lymphocytes % (auto) 29.2 %; Mean Platelet Volume 9.8 fL (7.4-10.4); Monocytes # (auto) 0.85 K/uL (0.11-0.59); Monocytes % (auto) 12.1 %; Neutrophils # (auto) 4.02 K/uL (1.4-6.5); Neutrophils % (auto) 57.4 %; Platelet Count 493 K/uL (130-400); RDW Coefficient of Variation 16.6 % (11.5-14.5); RDW Standard Deviation 50.4 fL (36.4-46.3); White Blood Count 7.01 K/uL (4.8-10.8)
[2020-07-23 05:59] LABS: BUN Creatinine Ratio 14.1 (10-20); Calcium 8.6 mg/dl (8.5-10.1); Creatinine Clr Calc Pharmacy 142.8 ml/min; Est GFR (African American) 138.3; Est GFR (Non-African American) 119.3; Potassium 3.9 mmol/L (3.5-5.1)
[2020-07-23] MEDS: ENOXAPARIN INJ 40 MG/0.4 ML SYR SQ SCH (08:40)
[2020-07-23] MEDS: CYANOCOBALAMIN 500 MCG TABLET (VITAMIN B-12) PO SCH (08:41)
[2020-07-23] MEDS: PANTOprazole 40 MG TAB PO SCH ×2 (08:41→20:00)
--- NOTE | 2020-07-23 12:07 | Electrocardiogram Report ---
Test Reason : Blood Pressure : / mmHG Vent. Rate : 108 BPM Atrial Rate : 108 BPM P-R Int : 118 ms QRS Dur : 082 ms QT Int : 348 ms P-R-T Axes : 038 -06 070 degrees QTc Int : 466 ms Sinus tachycardia Otherwise normal ECG No previous ECGs available Confirmed by Gustavo Velez ([id number]) on 07/23/2020 12:06:34 PM Referred By: REFERRED SELF Confirmed By:Gustavo Velez
--- NOTE | 2020-07-23 17:01 | Hospitalist Progress Note ---
Date of Service July 23, 2020 Assessment & Plan (1) Generalized weakness: Possible related Wernicke Korsakoff past alcohol abuse CT head showed no acute intracranial abnormality. Was recently admitted at [facility] for weakness MRI done last week at [facility] showed T2 flared Continue thiamine, folic acid and B12 Continue PT/OT Consider neuro consult Fall precaution Will consult neuro Will consider inpatient rehab Hypothyroidism TSH wnl Continue levothyroxine Hypokalemia K 3.2 on admission, K replaced last night K 3.9 Stable Abnormal UA UA positive for Nitrite and bacteria Asymptomatic Will hold on abx for now DVT prophylaxis. Lovenox subcu CODE STATUS FULL CODE Patient's requesting updates from providers. Mr. Jose Carlos Hagen, contact #[phone]. Admission and Anticipated Discharge Date Admission Date: July 23, 2020 Subjective Pt was seen and examined Lying in bed with no distress Pt said that she was recently admitted [facility] for weakness She said that she continues to feel weak where she is not able to stand on her legs She said that she usually drinks wine color, only drink alcohol occasional She said that she has to get helped to walk to the bathroom Denies any chest pain, palpitation, dizziness, SOB, and palpitation Physical Exam Physical Exam: General- No acute distress Head- atraumatic Eyes- PERRL, EOMI, ENT- oropharynx clear Neck- supple, no JVD Lungs- clear to auscultation Heart- regular rhythm; no murmur Abdomen- normal bowel sounds, soft, nontender Extremities- no calf tenderness Neuro- alert, oriented x 3; PERRL, EOMI; no facial palsy; no dysarthria, +nystagmus Skin- warm & dry Results & Data Results & Data ([facility]) Vital Signs (Past 12 Hours) Vital Signs Temp Pulse Pulse Resp BP Pulse Ox 07/23/20 14:58 37.0 C 96 H 20 104/69 99 07/23/20 14:20 110 H 07/23/20 12:09 36.8 C 91 H 20 110/76 97 07/23/20 08:16 37.1 C 81 20 109/74 96 07/23/20 07:27 94 H
[2020-07-23] MEDS: LEVOTHYROXINE SODIUM 100 MCG TABLET PO SCH (20:00)
[2020-07-23] MEDS: MIRTAZAPINE TAB 15 MG TAB PO SCH (20:00)
[2020-07-23] MEDS: ACETAMINOPHEN 325 MG TAB PO PRN (22:31)
[2020-07-23] MEDS ORDERED: KETOROLAC TROMETHAMINE 15 MG/ML VIAL IV PRN (23:12)
[2020-07-23] MEDS ORDERED: IBUPROFEN 200 MG TAB PO PRN (23:12)
[2020-07-24] MEDS: CYANOCOBALAMIN 500 MCG TABLET (VITAMIN B-12) PO SCH (08:58)
[2020-07-24] MEDS: ENOXAPARIN INJ 40 MG/0.4 ML SYR SQ SCH (08:58)
[2020-07-24] MEDS: PANTOprazole 40 MG TAB PO SCH ×2 (08:58→21:40)
--- NOTE | 2020-07-24 13:31 | Progress Notes ---
DATE: 07/24/2020 REASON FOR CONSULTATION: Weakness, change in mental status. HISTORY OF PRESENT ILLNESS: The patient is a 34-year-old right-handed female with PCOS. She has felt nonspecifically unwell for several months. She was recently incarcerated for a month for stealing money from her place of work. During that incarceration, her neurologic symptoms worsened and they consisted of generalized weakness, some confusion and instability. Prior to the hospitalization, at some point, she had lost 20 pounds, somewhat voluntarily. Prior to her admission to the care home, she would drink wine coolers several days per week. She had noted prior to that admission some imbalance, some slowed thinking and some generalized weakness. While in care home, she had difficulty swallowing solids. She denies any further weight loss. She was taken to [facility] from care home where she was evaluated. Multiple metabolic abnormalities were found including elevated liver functions, a potassium of 2.5 mg, Folic acid of 4.3. Her MRI of the brain was said to show bilateral abnormalities in the periaqueductal sheth mammillary bodies and medial thalami. She apparently also had an MRI of the thoracic spine and may have had other MRI imaging. Thiamine was supplemented as I believe was B12. The patient had an attempted barium esophagram, but the patient would not swallow during the study. The patient had an EGD which showed duodenitis and gastritis and a hiatal hernia. CT of the abdomen and pelvis were negative and CTA of the chest was unremarkable and ammonia level was normal, a sed rate was 31 and white count at highest was 12. Her TSH was low and her T4 was elevated and her thyroid supplementation was reduced in dose. The patient was discharged from [facility] to the care home and then discharged home where her brought her to [facility] for ongoing weakness. PAST MEDICAL HISTORY: Noted both for hypothyroidism, polycystic ovarian disease. PAST SURGICAL HISTORY: Tonsillectomy, D and C. FAMILY HISTORY: Heart disease, diabetes. SOCIAL HISTORY: Nonsmoker. The patient reports only occasional alcohol use. She was working at a [employer]. She has graduated from 12th grade, but had learning disabilities. Attended [employer] for 1 year. ALLERGIES: No allergies were noted. MEDICATIONS: Prior to this admission were B12, vitamin D2, levothyroxine, Remeron, pantoprazole and thiamine 100 mg daily. REVIEW OF SYSTEMS: In addition to above, is notable for lower extremity weakness, intermittent paresthesias to the knees. No significant spine pain. No incontinence of bowel or bladder. No headaches. No stiff neck. No fevers, chills or sweats, cough or shortness of breath. She has not noticed any breast lumps. She indicates that she menstruates regularly and does not have any intermenstrual bleeding. A CT of the head performed at our facility appears grossly normal. There may be some bifrontal atrophy, nonspecific changes in the white matter. LABORATORY DATA: White count was 7, H and H 12.2/37, MCV 85, platelet count 516. Sed rate 37. Sodium 144, potassium 3.2, glucose 108. Ammonia 19. Transaminases normal. Urinalysis cloudy, trace ketones, positive nitrites, 1+ leukocyte esterase, greater than 30 white cells, epithelials cells greater than 30, 4+ bacteria. Tox screen negative. Lyme negative. Electrocardiogram, sinus tachycardia. PHYSICAL EXAMINATION: VITAL SIGNS: 36.8, 86, 125/88, pulse 100. GENERAL: The patient is awake and alert. Her mentation is mildly slow. She is oriented x3. Memory is 2/3 at 3 minutes. She is a reasonably good historian. There is no right/left confusion. There is normal naming, repetitions and 3-step commands. General examination is noted for significant hirsutism, hyperpigmentation between the folds of skin. Some hyperpigmentation on her arms. A buffalo hump is not observed. The patient easily becomes sleepy and closes her eyes. Her attention span is mildly reduced. NECK: There are no carotid bruits. HEART: No heart murmurs. ABDOMEN: Soft and nontender. NEUROLOGIC: Pupils are equal, round and reactive to light. I had difficulty visualizing the optic nerves secondary to noncooperation and eye movement. There are normal harvey. Motility reveals ratchety saccades. There is nystagmus in up gaze and mildly limited down gaze, some mild horizontal nystagmus is noted on lateral gaze. No obvious ophthalmoplegia was noted. I question whether or not, some of the eye movements may not be opsoclonic. There is normal facial symmetry. Speech is slow, but not dysarthric. Tongue is midline. Motor: Normal bulk and tone are noted. Strength is full in the uppers with the exception of mild weakness of the deltoids. In the lower extremities, there is some weakness of the iliopsoas, the quad more so on the right than the left in the hamstrings. There is no drift and there is equal rapid alternating movements. [id number] is mildly dystaxic more so on left than right. There is dysdiadochokinesia on the left. [id number] is dystaxic. The patient has trace reflexes in the uppers, 0 at the knees and 0 at the ankles. Toes are downgoing. Vibration sense is said to be present at the toes, but proprioception is poor in the toes. There is a mid calf level to temperature. Sensation is intact in the upper. When the patient sits up to ambulate, she becomes very lightheaded and could not ambulate. IMPRESSION: This patient has had a subacute presentation of encephalopathy, abnormality of eye movements with nystagmus, dysphagia, some proximal muscle weakness, some mild generalized weakness, signs of a peripheral neuropathy on exam affecting the posterior column function with possible autonomic dysfunction.. This may represent a nonalcoholic Wernicke's as was the working diagnosis at [facility]. I would continue thiamine supplementation. I would supplement folic acid. I believe they were supplementing vitamin B12. The patient could have a Eric's encephalopathy. Recommend checking antithyroid antibodies. The patient has signs that she may be somewhat cushingoid and has apparent orthostasis. Defer to medical team regarding additional workup for adrenal disease and treatment. I would recommend an EEG, antithyroid antibodies. I would check an DIOGENES and anticardiolipin antibody. I have asked our hospital to get a full set of the patient's imaging studies that were performed at [facility] both film and report. I suspect she has had an MRI of the cervical spine if the thoracic was imaged. Nerve conduction EMG may be appropriate at some point as may be a lumbar puncture. This could also be a paraneoplastic process. We will follow with you. MIREILLE
--- NOTE | 2020-07-24 19:48 | Hospitalist Progress Note ---
Date of Service July 24, 2020 Assessment & Plan (1) Generalized weakness: Possible related Wernicke Korsakoff past alcohol abuse CT head showed no acute intracranial abnormality. Was recently admitted at [facility] for weakness MRI done last week at [facility] showed T2 flared Continue thiamine, folic acid and B12 Continue PT/OT Neuro on board recommended to check DIOGENES, A Fall precaution Will consult neuro Recommend an EEG, antithyroid antibodies, DIOGENES and anticardiolipin antibody. Will need inpatient rehab Hypothyroidism TSH wnl Will check antithyroid ab Continue levothyroxine Dysphagia Difficulty to swallow his pills Will consult speech Aspiration precaution Hypokalemia K 3.2 on admission, K replaced last night K 3.9 Stable Abnormal UA UA positive for Nitrite and bacteria Continue to hold abx DVT prophylaxis. Lovenox subcu CODE STATUS FULL CODE Patient's requesting updates from providers. Mr. Jose Carlos Hagen, contact #[phone]. Admission and Anticipated Discharge Date Admission Date: July 24, 2020 Subjective Pt was seen and examined Lying in bed with no distress Pt said that her helped her today to go to the bathroom She said she continues to feels weak to stand on her leg Yesterday pt asked me if I used to work in [facility] She remembered me when i was working in [facility] would like to get proof that said she was in the hospital to give to the [employer] airspace control officer said that if he does not give the proof, she might have a warrant after her Pt denies any chest pain, palpitation and sob Physical Exam Physical Exam: General- No acute distress Head- atraumatic Eyes- PERRL, EOMI, ENT- oropharynx clear Neck- supple, no JVD Lungs- clear to auscultation Heart- regular rhythm; no murmur Abdomen- normal bowel sounds, soft, nontender Extremities- no calf tenderness Neuro- alert, oriented x 3; PERRL, EOMI; no facial palsy; no dysarthria, +lateral nystagmus Skin- warm & dry Results & Data Results & Data ([facility]) Vital Signs (Past 12 Hours) Vital Signs Temp Pulse Resp BP Pulse Ox 07/24/20 15:08 36.6 C 92 H 20 123/85 98
[2020-07-24] MEDS: MIRTAZAPINE TAB 15 MG TAB PO SCH (21:40)
[2020-07-24] MEDS: LEVOTHYROXINE SODIUM 100 MCG TABLET PO SCH (21:41)
[2020-07-25] MEDS: PANTOprazole 40 MG TAB PO SCH ×2 (07:46→21:47)
[2020-07-25] MEDS: CYANOCOBALAMIN 500 MCG TABLET (VITAMIN B-12) PO SCH (07:46)
[2020-07-25] MEDS: ENOXAPARIN INJ 40 MG/0.4 ML SYR SQ SCH (07:47)
[2020-07-25 11:08] LABS: INR 1.1 (0.9-1.1); Partial Thromboplastin Ratio 1.1; Partial Thromboplastin Time 31.2 Seconds (21.0-31.0)
[2020-07-25] MEDS: FOLIC ACID 1 MG TAB PO SCH (11:13)
[2020-07-25] MEDS: THIAMINE HCL 500 MG in SODIUM CHLORIDE 0.9% 50 ML IV SCH (11:13)
--- NOTE | 2020-07-25 13:58 | Electroencephalogram ---
EEG Procedure Note Date of Service July 25, 2020 Start / End Times Start Time: 05:58 End Time: 06:18 Referring Physician yocasta Vicente MD History A 34-year-old woman with presumed Wernicke encephalopathy. EEG performed for evaluation epileptiform activity. Home Medication List Home Medications Medication Instructions Recorded Confirmed Type cyanocobalamin (vitamin B-12) 1,000 mcg PO DAILY 07/22/20 07/22/20 History [Vitamin B-12] ergocalciferol (vitamin D2) 1,250 mcg PO WK 07/22/20 07/22/20 History [Vitamin D2] levothyroxine 100 mcg PO HS 07/22/20 07/22/20 History mirtazapine 15 mg PO HS 07/22/20 07/22/20 History pantoprazole 40 mg PO BID 07/22/20 07/22/20 History thiamine HCl (vitamin B1) [Vitamin 100 mg PO DAILY 07/22/20 07/22/20 History B-1] Inpatient Medication List Acetaminophen (Acetaminophen 325 Mg Tab) 650 mg PO Q4H PRN PRN Reason: Pain or Fever Stop: 08/22/20 01:50 Last Admin: 07/23/20 22:31 Dose: 650 mg Documented by: [id number] Cyanocobalamin (Cyanocobalamin 500 Mcg Tablet (Vitamin B-12)) 1,000 mcg PO DAILY [facility] Stop: 08/22/20 08:59 Last Admin: 07/25/20 07:46 Dose: 1,000 mcg Documented by: [id number] Admin: 07/24/20 08:58 Dose: 1,000 mcg Documented by: [id number] Admin: 07/23/20 08:41 Dose: 1,000 mcg Documented by: [id number] Enoxaparin Sodium (Enoxaparin Inj 40 Mg/0.4 Ml Syr) 40 mg SQ QAM [facility] Stop: 08/22/20 08:59 Last Admin: 07/25/20 07:47 Dose: 40 mg Documented by: [id number] Admin: 07/24/20 08:58 Dose: 40 mg Documented by: [id number] Admin: 07/23/20 08:40 Dose: 40 mg Documented by: [id number] Folic Acid (Folic Acid 1 Mg Tab) 1 mg PO QAM [facility] Stop: 08/24/20 10:29 Last Admin: 07/25/20 11:13 Dose: 1 mg Documented by: [id number] Thiamine HCl 500 mg/ Sodium (Chloride) 55 mls @ 208 mls/hr IV QAM [facility] Stop: 07/27/20 10:29 Last Infusion: 07/25/20 12:13 Dose: 0 mls/hr Documented by: [id number] Admin: 07/25/20 11:13 Dose: 208 mls/hr Documented by: [id number] Ibuprofen (Ibuprofen 200 Mg Tab) 200 mg PO Q6H PRN PRN Reason: Mild Pain Stop: 08/22/20 23:11 Last Admin: 07/23/20 23:44 Dose: 200 mg Documented by: [id number] Ketorolac Tromethamine (Ketorolac Tromethamine 15 Mg/Ml Vial) 15 mg IV Q6H PRN PRN Reason: Pain Stop: 07/28/20 23:11 Last Admin: 07/24/20 00:44 Dose: 15 mg Documented by: [id number] Levothyroxine Sodium (Levothyroxine Sodium 100 Mcg Tablet) 100 mcg PO [facility] Stop: 08/22/20 20:59 Last Admin: 07/24/20 21:41 Dose: 100 mcg Documented by: [id number] Admin: 07/23/20 20:00 Dose: 100 mcg Documented by: [id number] Mirtazapine (Mirtazapine Tab 15 Mg Tab) 15 mg PO [facility] Stop: 08/22/20 20:59 Last Admin: 07/24/20 21:40 Dose: 15 mg Documented by: [id number] Admin: 07/23/20 20:00 Dose: 15 mg Documented by: [id number] Pantoprazole Sodium (Pantoprazole 40 Mg Tab) 40 mg PO BID [facility] Stop: 08/22/20 08:59 Last Admin: 07/25/20 07:46 Dose: 40 mg Documented by: [id number] Admin: 07/24/20 21:40 Dose: 40 mg Documented by: [id number] Admin: 07/24/20 08:58 Dose: 40 mg Documented by: [id number] Admin: 07/23/20 20:00 Dose: 40 mg Documented by: [id number] Admin: 07/23/20 08:41 Dose: 40 mg Documented by: [id number] Discontinued Medications Multivitamins 10 ml/ Thiamine HCl 100 mg/ Folic Acid 1 mg/Sodium Chloride 1,011.2 mls @ 1,011.2 mls/hr IV .Q1H ONE Stop: 07/22/20 21:38 Last Infusion: 07/22/20 22:58 Dose: 0 mls/hr Documented by: [id number] Admin: 07/22/20 21:39 Dose: 1,011.2 mls/hr Documented by: [id number] Thiamine HCl 200 mg/ Sodium (Chloride) 52 mls @ 208 mls/hr IV NOW STA Stop: 07/22/20 20:53 Last Infusion: 07/22/20 21:55 Dose: 0 mls/hr Documented by: [id number] Admin: 07/22/20 21:39 Dose: 208 mls/hr Documented by: [id number] Lactated Ringer's (Lr) 1,000 mls @ 200 mls/hr IV .Q5H ONE Stop: 07/23/20 04:41 Last Admin: 07/23/20 00:51 Dose: Not Given Documented by: [id number] Potassium Chloride 40 meq/ (Sodium Chloride) 1,020 mls @ 80 mls/hr IV .[id number] ONE Stop: 07/23/20 13:13 Last Infusion: 07/23/20 14:10 Dose: 0 mls/hr Documented by: [id number] Admin: 07/23/20 01:08 Dose: 80 mls/hr Documented by: [id number] Magnesium Sulfate/Dextrose (Magnesium Sulfate / D5w) 1 gm in 100 mls @ 50 mls/hr IV ONE ONE Stop: 07/23/20 03:50 Last Infusion: 07/23/20 04:37 Dose: 0 mls/hr Documented by: [id number] Admin: 07/23/20 02:34 Dose: 50 mls/hr Documented by: [id number] Miscellaneous (Patient's Height And/Or Weight Needed) 1 ea N/A Q2H [facility] Stop: 07/23/20 06:00 Last Admin: 07/23/20 02:13 Dose: Not Given Documented by: [id number] Potassium Chloride (Potassium Chloride 20 Meq Tabcr) 40 meq PO NOW STA Stop: 07/22/20 23:43 Last Admin: 07/23/20 00:35 Dose: 40 meq Documented by: [id number] Potassium Chloride (Potassium Chloride 20 Meq Tabcr) 40 meq PO ONE ONE Stop: 07/23/20 02:31 Last Admin: 07/23/20 02:34 Dose: 40 meq Documented by: [id number] Description This is a 21 electrode EEG with a single channel dedicated to limited EKG. The electrodes were placed in accordance with the International 10-20 system. Report: At the onset of the EEG the patient is awake. The background is symmetric and well organized. There is myogenic artifact in the frontal head regions. The posterior dominant rhythm is 8-9 Hz. There is a normal anterior to posterior gradient with low amplitude beta activity in the frontal head regions. Drowsiness is characterized by increased theta activity with some intermixed delta activity, reduced blink rate, and decreased myogenic artifact. No stage 2 sleep transients are recorded. Photic stimulation does not induce any abnormalities. Impression: This is a normal awake and drowsy routine EEG. There is no evidence of focal slowing or epileptiform activity.
[2020-07-25 17:03] LABS: Appearance Urine Clear (Clear); Bacteria Urine Automated 1+ (Negative); Bilirubin Urine Negative (Negative); Blood Urine Negative (Negative); Cast Urine Automated 0 /lpf (0-5); Color Urine Dark Yellow; Epithelial Cell Urine Auto 0-5 /lpf (0-5); Glucose Urine UA Negative (Negative); Ketones Urine Negative (Negative); Leukocyte Esterase Urine Negative (Negative); Nitrite Urine Positive (Negative); Protein Urine Negative (Negative); RBC Urine Automated 0-4 /hpf (0-4); Specific Gravity Urine 1.011 (1.000-1.030); Urobilinogen Urine Negative (Negative)
--- NOTE | 2020-07-25 19:47 | Hospitalist Progress Note ---
Date of Service July 25, 2020 Assessment & Plan (1) Generalized weakness: Possible related Wernicke Korsakoff past alcohol abuse CT head showed no acute intracranial abnormality. Was recently admitted at [place] for weakness MRI done last week at [place] (Will ask staff to call zalma to get the MRI head report ) Continue high dose IV thiamine 500mg x 2 days Continue folic acid and B12 supplement Continue PT/OT Neuro on board recommended to to get an LP Fall precaution antithyroid antibodies, DIOGENES and anticardiolipin antibody pending Will need inpatient rehab Hypothyroidism TSH wnl Antithyroid ab pending Continue levothyroxine Dysphagia Difficulty to swallow his pills Speech therapy on board recommended easy to chew and slippery diet Aspiration precaution Hypokalemia K 3.2 on admission, K replaced last night K 3.9 Stable Abnormal UA UA positive for Nitrite and bacteria urine grew staph species, Possible contamination Unable to get a clean cath sample since pt has to use a bedpan Will repeat UA asymptomatic DVT prophylaxis. Lovenox subcu (Will hold for LP) CODE STATUS FULL CODE Patient's requesting updates from providers. Mr. Jose Carlos Hagen, contact #[phone]. Admission and Anticipated Discharge Date Admission Date: July 24, 2020 Subjective Pt was seen and examined Lying in bed with no distress Pt said that she continue to feel weak when standing on her feet She thought that she was admitted last night to the hospital Denies any chest pain, palpitation, dizziness and SOB Physical Exam Physical Exam: General- No acute distress Head- atraumatic Eyes- PERRL, EOMI, ENT- oropharynx clear Neck- supple, no JVD Lungs- clear to auscultation Heart- regular rhythm; no murmur Abdomen- normal bowel sounds, soft, nontender Extremities- no calf tenderness Neuro- alert, oriented x 3; PERRL, EOMI; no facial palsy; no dysarthria, +lateral nystagmus Skin- warm & dry Results & Data Results & Data ([facility]) Vital Signs (Past 12 Hours) Vital Signs Temp Pulse Resp BP BP Pulse Ox 07/25/20 15:07 37.2 C 106 H 16 111/77 96 07/25/20 09:58 37.1 C 117 H 18 112/73 97 07/25/20 07:49 37.4 C 105 H 20 116/73 95
[2020-07-25] MEDS: MIRTAZAPINE TAB 15 MG TAB PO SCH (21:47)
[2020-07-25] MEDS: ACETAMINOPHEN 325 MG TAB PO PRN (21:48)
[2020-07-25] MEDS: LEVOTHYROXINE SODIUM 100 MCG TABLET PO SCH (21:48)
--- NOTE | 2020-07-25 22:50 | Progress Notes ---
DATE: 07/25/2020 SUBJECTIVE: I am seeing Mrs. 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 Her EEG today was normal. Thiamine level is pending. Apparently, the patient has had MRI of the brain and thoracic spine when hospitalized at [place] but not cervical or lumbar. She has been resumed on thiamine replacement as well as folic acid replacement. Her PT is 12, PTT 31.2. Thiamine level is pending. A.m. cortisol normal. Tox screen negative. Antithyroid antibodies pending. Lyme titer negative. The patient still complains of lightheadedness with standing, feels somewhat improved today. Unclear if she was out of bed with therapy. OBJECTIVE: VITAL SIGNS: Blood pressure 111/77, pulse 106, temperature 37.2. GENERAL: The patient is awake, mildly slow in thought process, oriented to person, but thought she was in [facility]. NEUROLOGIC: Her pupils were equal. She still has nystagmus and upgaze and a limited downgaze. Her eye movements appeared less opsoclonic. Her face is symmetric. Her speech is nondysarthric. Motor in the uppers appeared full. There is still iliopsoas weakness, mild right quad weakness, bilateral hamstring weakness. She is still areflexic in the lowers. Toes are downgoing. There is a mid calf level to temperature. Vibration appears present in the toes. There is less dystaxia on [id number] and less dysdiadochokinesia. [id number] is still dystaxic. Gait not tested. IMPRESSION: Presumed Wernicke's encephalopathy. The patient has not had much improvement of her symptoms with aggressive treatment of Wernicke's. PLAN: Recommend MRI cervical and lumbar spine, rule out structural lesions, demyelinating lesions, enhancement. If this is negative, lumbar puncture to follow. A normal lumbar puncture would be very reassuring. If the protein or cells are elevated, it may be suggestive of an inflammatory process. Await antithyroid antibodies. This could be Eric's encephalitis, although typically the MRI is normal in that instance. We will follow with you.
[2020-07-26 06:27] LABS: Hemoglobin 10.1 g/dL (12.0-16.0); Mean Corpuscular Hemoglobin 28.2 pg (25-34); Mean Corpuscular Hgb Conc 32.6 g/dL (32-36); Mean Corpuscular Volume 86.6 fL (80-100); Mean Platelet Volume 10.1 fL (7.4-10.4); Platelet Count 424 K/uL (130-400); RDW Coefficient of Variation 17.5 % (11.5-14.5); Red Blood Count 3.58 M/uL (4.2-5.4); White Blood Count 10.33 K/uL (4.8-10.8)
[2020-07-26 06:55] LABS: BUN Creatinine Ratio 16.1 (10-20); Calcium 8.6 mg/dl (8.5-10.1); Est GFR (African American) 139.8; Est GFR (Non-African American) 120.6; Potassium 3.4 mmol/L (3.5-5.1)
[2020-07-26] MEDS: PANTOprazole 40 MG TAB PO SCH ×2 (07:59→21:33)
[2020-07-26] MEDS: CYANOCOBALAMIN 500 MCG TABLET (VITAMIN B-12) PO SCH (07:59)
[2020-07-26] MEDS: FOLIC ACID 1 MG TAB PO SCH (08:00)
[2020-07-26] MEDS: THIAMINE HCL 500 MG in SODIUM CHLORIDE 0.9% 50 ML IV SCH (08:00)
[2020-07-26 09:58] LABS: Appearance CSF Clear; CSF Count Tube # 3; CSF Xanthrochromic No xanthochromia; Color CSF Colorless; Red Blood Cell CSF (A) 0 /uL (0-); Red Blood Cell CSF (B) 0 /uL (0-); White Blood Cell CSF (A) 0 /uL (0-5); White Blood Cell CSF (B) 0 /uL (0-5)
[2020-07-26 10:06] LABS: Total Protein CSF 109.5 mg/dl (15-45)
--- NOTE | 2020-07-26 10:08 | Fluoroscopy Report ---
FLUOROSCOPICALLY GUIDED LUMBAR PUNCTURE CLINICAL HISTORY: Altered mental status/lower extremity weakness FLUOROSCOPY TIME: 0.3 minutes. A single fluoroscopic spot image of the lumbar spine. PROCEDURE: The procedure, risks and benefits were discussed with the patient including the risk of s mahamed headache, bleeding and infection. The patient agreed to the procedure and informed written cons ent was obtained. The procedure was performed by Dr. Hutson following a timeout. The left L5-S1 in terlaminar space was targeted. Skin overlying the space was prepped and draped in the usual sterile f ashion and local anesthesia was achieved with 1% lidocaine. Under intermittent fluoroscopic guidance, a 20-gauge x 3 1/2 in. Sprotte needle was inserted into the thecal sac. A total of 10 cc of clear, c olorless cerebral spinal fluid was obtained and spread amongst 4 vials. The patient tolerated the pro cedure well. There were no immediate complications. The specimens were sent to the laboratory at the request of the referring physician. IMPRESSION: Successful fluoroscopic guided lumbar puncture with removal of 10 cc of clear, colorless cerebral spinal fluid. No immediate complications. ACT 112: Negative or not required by law. Electronically signed by: Charlie Hutson M.D. 07/26/2020 10:07 AM
[2020-07-26] MEDS ORDERED: POTASSIUM CHLORIDE 20 MEQ TABCR PO STA ×2 (10:12→23:30)
[2020-07-26 13:25] LABS: Microsomal Ab 69 IU/mL (<9); Thyroglobulin Antibodies <1 IU/mL (< or = 1)
[2020-07-26] MEDS ORDERED: GADOBUTROL 65ML VIAL IV ONE (13:32)
--- NOTE | 2020-07-26 13:53 | Magnetic Resonance Report ---
MR cervical spine wo/w con CLINICAL HISTORY: paraparesis NECK PAIN. INABILITY TO AMBULATE. TECHNIQUE: Sagittal and axial T1, T2 and STIR images were obtained. Images were acquired before and a fter the administration of 8 cc of intravenous Gadavist. The images are compromised due to motion art ifact. COMPARISON STUDY: No previous studies for comparison. There are no suspicious areas of marrow replacement. No intrinsic cervical cord lesions are visualize d. C2-3: There is no evidence of disc bulge or focal herniation. There is no spinal or foraminal stenosi s. C3-4: There is a mild circumferential disc bulge. There is no significant spinal or foraminal stenosi s C4-5: There is a minimal circumferential disc bulge. There is no significant spinal or foraminal sten osis C5-6 :There is a minimal circumferential disc bulge. There is no significant spinal or foraminal sten osis C6-7: There is no evidence of disc bulge or focal herniation. There is no evidence of spinal or barron inal stenosis. C7-T1: There is no evidence of disc bulge or focal herniation. There is no evidence of spinal or fora desire stenosis. Postcontrast images reveal no pathologic enhancement IMPRESSION: 1. Motion degraded examination 2. Minor degenerative changes with minimal disc bulges the C3-4, C4-5 and C5-C6 levels 3. No evidence of spinal or foraminal stenosis 4. No evidence of pathologic marrow replacement 5. No cord lesions identified ACT 112: Negative or not required by law. Electronically signed by: Dawit Schmidt M.D. 07/26/2020 1:52 PM
--- NOTE | 2020-07-26 14:34 | Magnetic Resonance Report ---
LUMBAR SPINE MRI WITH AND WITHOUT CONTRAST HISTORY: Bilateral lower extremity weakness. paraparesis TECHNIQUE: Multiplanar multisequence MRI of the lumbar spine was performed both before and after the intravenous administration of contrast. COMPARISON: None. FINDINGS: For the purpose of the report the L5-S1 disc space will be located on axial image 23 of 25. Significant motion artifact on the pre and postcontrast T1 sequences resulting in suboptimal evaluati on. Small linear focus of soft tissue edema posterior to the L5-S1 level likely corresponds to the re cent lumbar puncture. No epidural fluid collections or hematoma identified. No fractures of fixation within the lumbar spine. Mild disc desiccation at L2-L3, L4-L5, and L5-S1. Disc spaces are preserved. The conus terminates at the L1-L2 disc space level. Paravertebral soft tissues are within normal zheng its. Postcontrast sequences show no areas of abnormal enhancement. L1-L2: No significant central canal or neural foraminal narrowing. L2-L3: There is a small focal central disc protrusion measuring 6 x 4 mm demonstrate mild superior varela bligamentous migration. However, no significant central canal or neural foraminal narrowing. L3-L4: No significant central canal or neural foraminal narrowing. L4-L5: No significant central canal or neural foraminal narrowing. L5-S1: Small broad-based posterior disc bulge without significant central canal narrowing. There is m ild left-sided neural foraminal narrowing. IMPRESSION: 1. No fracture or subluxation within the lumbar spine. 2. Small focal central disc protrusion at L2-L3 without significant central canal or neural foraminal narrowing. 3. Small broad-based posterior disc bulge at L5-S1 resulting in mild left-sided neural foraminal narr owing. ACT 112: Negative or not required by law. Electronically signed by: Charlie Hutson M.D. 07/26/2020 2:33 PM
--- NOTE | 2020-07-26 17:57 | Progress Notes ---
DATE: 07/26/2020 SUBJECTIVE: I am seeing Mrs. Hagen in followup of apparent Wernicke's encephalopathy. As noted yesterday, her EEG was normal. She underwent an MRI of the cervical spine and lumbar spine, which were noncontributory to her clinical symptoms. Her antimicrosomal, also known as thyroid peroxidase antibody was positive at 69. The range is less than 9. Antithyroglobulin antibody was negative. Her lumbar puncture showed no significant white or red cells, total protein of 109. Rest of testing is pending. The CSF was clear and colorless. The patient indicates that she is feeling better that her body aches are better. PHYSICAL EXAMINATION: She is awake and alert. She has difficulty knowing the month. She thought she was in [facility]. No right/left confusion. No aphasia. There is still impaired down gaze and with upgaze some vertical nystagmus. Mild end nystagmus on horizontal gaze. At baseline, I think there are less random eye movements. I would not frankly say that there is opsoclonus. Her upper extremities strength appears full. Her lower extremity strength is unchanged. The iliopsoas is about 4. The right quad is about 3+, the hamstrings are about 4, TA and gastrocs are relatively full. She is areflexic in the lower, vibration is present at the toes and there is a mid calf level to temperature. Fpauma-[id number]-kzin is less dystaxic than it had been. Eyka-ij-[id number] is still dystaxic. Gait was not tested. IMPRESSION AND PLAN: This patient appears to have a nonalcoholic Wernicke's encephalopathy. We are still trying to obtain the thiamine level from her inpatient visit at [place]. She has received and continued to receive high dose of thiamine replacement. Her lumbar puncture shows an elevated total protein, which is somewhat unexpected at this level for Wernicke's. It could theoretically support a Eric's thyroiditis. I would recommend potentially discussing the antimicorsomal antibody level with endocrinology. It appears that the level would be considered to be mildly or moderately elevated but not significantly elevated. I would recommend that the patient be optimized with therapy. I believe she will need inpatient physical therapy and that she be monitored. Folic acid supplementation remains reasonable. As an outpatient, I would recommend that she be referred for a nerve conduction EMG of 1 arm and 1 leg, preferably the right, to assess what appears to be a lower motor neuron or neuropathic process. I would recommend a followup MRI of the brain 6 weeks after the initial with and without contrast. Further treatment will depend on her clinical course and level of improvement. She will need to see me post discharge. MIREILLE
--- NOTE | 2020-07-26 19:17 | Hospitalist Progress Note ---
Date of Service July 26, 2020 Assessment & Plan (1) Generalized weakness: Possible related Wernicke Korsakoff past alcohol abuse CT head showed no acute intracranial abnormality. Was recently admitted at [place] for weakness MRI done last week at [place] (Will ask staff to call johnson to get the MRI head report ) Continue high dose IV thiamine 500mg x 2 days, then 250mg IV Continue folic acid and B12 supplement Continue PT/OT Neuro on board LP done showed elevated protein Follow up other markers from CSF such as VDRL, HSV,... Fall precaution Antithyroid antibodies elevated, will need to discuss the finding with Endocrinology anticardiolipin antibody pending Will need inpatient rehab Waiting for thiamine level and head MRI done at [place] (assistant secretary called [place] and request for them) Hypothyroidism TSH wnl Antithyroid ab elevated at 69 Continue levothyroxine Dysphagia Difficulty to swallow his pills Speech therapy on board recommended easy to chew and slippery diet Aspiration precaution Hypokalemia K 3.2 on admission, K replaced last night K 3.9 Stable Abnormal UA UA positive for Nitrite and bacteria urine grew staph species, Possible contamination Unable to get a clean cath sample since pt has to use a bedpan repeat UA grew staph species (She was straight cath ) asymptomatic if spike any fever or develops leukocytosis, will start on abx DVT prophylaxis. Lovenox subcu (Will hold for LP) CODE STATUS FULL CODE Patient's requesting updates from providers. Mr. Jose Carlos Hagen, contact #[phone]. Admission and Anticipated Discharge Date Admission Date: July 24, 2020 Subjective Pt was seen and examined Lying in bed with no distress Pt said that she feels ok Denies any chest pain, palpitation, dizziness and SOB Physical Exam Physical Exam: General- No acute distress Head- atraumatic Eyes- PERRL, EOMI, ENT- oropharynx clear Neck- supple, no JVD Lungs- clear to auscultation Heart- regular rhythm; no murmur Abdomen- normal bowel sounds, soft, nontender Extremities- no calf tenderness Neuro- alert, oriented x 3; PERRL, EOMI; no facial palsy; no dysarthria, +lateral nystagmus Skin- warm & dry Results & Data Results & Data ([facility]) Vital Signs (Past 12 Hours) Vital Signs Temp Pulse Resp BP Pulse Ox 07/26/20 15:41 37.4 C 100 H 18 105/67 97 07/26/20 07:18 37.5 C 105 H 18 110/75 97
[2020-07-26] MEDS: LEVOTHYROXINE SODIUM 100 MCG TABLET PO SCH (21:32)
[2020-07-26] MEDS: MIRTAZAPINE TAB 15 MG TAB PO SCH (21:33)
[2020-07-26] MEDS ORDERED: NORMOSOL-R 1,000 ML IV ONE (23:28)
[2020-07-26] MEDS ORDERED: MAGNESIUM SULFATE / D5W 1 GM/100 ML BAG IV ONE (23:33)
[2020-07-27 00:01] LABS: Magnesium 2.1 mg/dl (1.8-2.4)
[2020-07-27] MEDS ORDERED: LACTATED RINGER'S 1,000 ML IV ONE (01:00)
[2020-07-27] MEDS ORDERED: SODIUM CHLORIDE 0.9% 1000ML 1,000 ML IV ONE ×2 (06:39→09:17)
[2020-07-27 07:19] LABS: Basophils # (auto) 0.02 K/uL (0-0.2); Basophils % (auto) 0.2 %; Eosinophils # (auto) 0.17 K/uL (0-0.5); Eosinophils % (auto) 1.7 %; Hematocrit (blood only) 31.2 % (37-47); Hemoglobin 10.1 g/dL (12.0-16.0); Immature Granulocytes # (auto) 0.04 K/uL (0.00-0.02); Immature Granulocytes % (auto) 0.4 %; Lymphocytes # (auto) 1.61 K/uL (1.2-3.4); Lymphocytes % (auto) 15.9 %; Mean Corpuscular Hemoglobin 28.3 pg (25-34); Mean Corpuscular Hgb Conc 32.4 g/dL (32-36); Mean Corpuscular Volume 87.4 fL (80-100); Mean Platelet Volume 10.6 fL (7.4-10.4); Monocytes # (auto) 1.25 K/uL (0.11-0.59); Monocytes % (auto) 12.3 %; Neutrophils # (auto) 7.05 K/uL (1.4-6.5); Neutrophils % (auto) 69.5 %; Platelet Count 402 K/uL (130-400); RDW Coefficient of Variation 17.2 % (11.5-14.5); RDW Standard Deviation 54.2 fL (36.4-46.3); Red Blood Count 3.57 M/uL (4.2-5.4); White Blood Count 10.14 K/uL (4.8-10.8)
[2020-07-27 07:31] LABS: Partial Thromboplastin Ratio 1.2; Partial Thromboplastin Time 32.1 Seconds (21.0-31.0)
[2020-07-27 07:51] LABS: BUN Creatinine Ratio 15.1 (10-20); Calcium 8.6 mg/dl (8.5-10.1); Est GFR (African American) 139.8; Est GFR (Non-African American) 120.6; Magnesium 2.3 mg/dl (1.8-2.4)
[2020-07-27] MEDS: CYANOCOBALAMIN 500 MCG TABLET (VITAMIN B-12) PO SCH (08:40)
[2020-07-27] MEDS: THIAMINE HCL 500 MG in SODIUM CHLORIDE 0.9% 50 ML IV SCH (08:40)
[2020-07-27] MEDS: PANTOprazole 40 MG TAB PO SCH ×2 (08:40→20:20)
[2020-07-27] MEDS: FOLIC ACID 1 MG TAB PO SCH (08:40)
[2020-07-27] MEDS ORDERED: ACETAMINOPHEN 325 MG TAB PO PRN (09:13)
--- NOTE | 2020-07-27 09:36 | Hospitalist Progress Note ---
Date of Service July 27, 2020 Assessment & Plan (1) Generalized weakness: nonalcoholic Wernicke's encephalopathy -as per ED notes on 07/22/2020: "The patient is a pleasant 34-year-old woman who presents emerged department coming by her partner with persistent lower extremity weakness and difficulty with coordination in setting of being admitted for the past week at 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 The patient initially presented to [facility] from her present facility for syncopal episode and had CT scan of her chest that was unremarkable. She was then referred to [facility] for further evaluation of her lower extremity weakness. She had MRI of the brain that was suggestive of Wernicke/Korsakoff syndrome. It was noted that the patient also likely had a psychiatric component to her symptoms. It was documented that she intermittently would not cooperate with physical therapy and so this may be why the patient was not discharged to a acute rehab facility. Patient reports she was discharged yesterday and today she was unable to get up." -as per admission notes that "Medical history significant for recent diagnosis of Korsakoff syndrome, past alcohol abuse, polycystic ovarian syndrome, hypothyroidism; Recent incarceration at a local correctional facility the last 2 months. Last month during incarceration, patient had an episode of emesis, noted to be confused and forgetful as per . As per , [facility] guards refused to bring patient to hospital. Last week, patient had a syncopal event and mentation issues leading to confinement at [facility]. Patient diagnosed to have Korsakoff syndrome. Patient discharged back to correctional facility a few days ago mentation back to baseline. Patient released from [facility] yesterday." -admission CT head showed no acute intracranial abnormality; she previously had brain MRI done at [facility] -Lumbar Puncture done showed elevated protein. 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 Shahid he discussed with an endocrine specialist and that this is unlikely because Antithyroid antibodies are far more elevated in typical Eric thyroiditis cases -neurology consult following the patient in the hospital and the working diagnosis is nonalcoholic Wernicke's encephalopathy -on daily IV thiamine supplement (IV thiamine 500mg x 2 days, then 250mg IV daily currently), daily folic acid -check serum folic acid level and serum B12 level -neurology recommend for future outpatient care that she be referred for a nerve conduction EMG of 1 arm and 1 leg, preferably the right, to assess what appears to be a lower motor neuron or neuropathic process; a followup MRI of the brain 6 weeks after the initial with and without contrast; outpatient neurology clinic follow up -PT/OT evaluations, assess if need for inpatient physical therapy center after hospital stay Hypothyroidism -admission TSH is euthymic at this time -Continue levothyroxine home dose levothyroxine 100 mcg daily Tachycardia -patient was transferred from [facility] to telemetry on 07/27/2020 because of sinus tachycardia in the 120s, patient received IV fluids. Start on metoprolol 12.5 mg q12 hours with prn IV metoprolol 5 mg every 6 hours as needed for heart rates above 110 bpm. On exam, patient awake and alert and denies palpitations or chest pain or shortness of breath. breathing on room air. no apparent pain of the body. no nausea. no vomiting Dysphagia -Speech therapy on board recommended easy to chew and slippery diet Hypokalemia -serum potassium 3.2 on admission -serum potassium has been repleted on this admission -Abnormal Urine Analysis -initial UA positive for Nitrite and bacteria but speciation of Staph species is likely skin santo or contaminant DVT prophylaxis. Lovenox subcutaneous CODE STATUS FULL CODE Patient's Mr. Jose Carlos Hagen, contact #[phone]. Admission and Anticipated Discharge Date Admission Date: July 24, 2020 Subjective -patient was transferred from [facility] to telemetry on 07/27/2020 because of sinus tachycardia in the 120s, patient received IV fluids. Start on metoprolol 12.5 mg q12 hours with prn IV metoprolol 5 mg every 6 hours as needed for heart rates above 110 bpm. On exam, patient awake and alert and denies palpitations or chest pain or shortness of breath. breathing on room air. no apparent pain of the body. no nausea. no vomiting. patient correctly named the month of the year but she reports that in regards to her memory and health she feels that she has difficulty recalling events since November of 2019 Review of Systems Review of Systems: All systems reviewed & are unremarkable except as noted in Subjective Physical Exam Constitutional: cooperative and comfortable Eyes: EOM intact bilaterally ENMT: external ear and nose normal, oropharynx normal Neck: normal visual inspection Respiratory: normal respiratory effort, lungs clear to auscultation Cardiovascular: Rate/Rhythm: + tachycardic Gastrointestinal (Abdomen): normal bowel sounds, soft, nontender, no hepatosplenomegaly Musculoskeletal: Head/Neck/Chest: normocephalic and head atraumatic Neurologic: PERRL, EOMI, accommodation nl, no face palsy, no dysarthria moves all extremities Psychiatric: A+Ox3, euthymic affect Results & Data Results & Data ([facility]) Vital Signs (Past 12 Hours) Vital Signs Temp Pulse Pulse Resp BP BP Pulse Ox 07/27/20 07:15 36.8 C 111 H 16 120/83 98 07/27/20 03:02 37.2 C 115 H 16 113/79 97 07/26/20 23:13 37.5 C 124 H 14 110/77 97
[2020-07-27] MEDS: METOPROLOL TARTRATE 25 MG TAB PO SCH ×2 (10:29→20:19)
[2020-07-27 12:24] LABS: Folate (Folic Acid) > 24.00 ng/ml (>5.38); Vitamin B12 937 pg/ml (211-911)
--- NOTE | 2020-07-27 13:18 | Electrocardiogram Report ---
Test Reason : Blood Pressure : / mmHG Vent. Rate : 107 BPM Atrial Rate : 107 BPM P-R Int : 122 ms QRS Dur : 082 ms QT Int : 348 ms P-R-T Axes : 052 049 075 degrees QTc Int : 464 ms Sinus tachycardia Otherwise normal ECG When compared with ECG of 22-JUL-2020 19:57, No significant change was found Confirmed by Gustavo Velez ([id number]) on 07/27/2020 1:17:54 PM Referred By: REFERRED SELF Confirmed By:Gustavo Velez
[2020-07-27] MEDS: METOPROLOL TARTRATE 1 MG/ML VIAL IV PRN (14:04)
--- NOTE | 2020-07-27 19:09 | Progress Notes ---
DATE: 07/27/2020 SUBJECTIVE: I am seeing Mrs. Hagen in followup of probable Wernicke's encephalopathy. No additional testing has come back. Cultures on her CSF are negative to date. None of the additional tests have returned. She was transferred from med[facility]surg to [facility] last evening because of a heart rate of 120. She still reports getting lightheaded with standing. Orthostatic blood pressures have been checked x1 and did not show orthostasis. She indicates that she is feeling better. PHYSICAL EXAMINATION: She is awake and alert. She is oriented x3. No opsoclonus is noted. There is still vertical nystagmus on up gaze and mildly limited down gaze, perhaps somewhat better. Normal facial symmetry. Full strength in the uppers. The iliopsoas are still about 4, the quads about 4, but the right may be slightly stronger than it had been. TA and gastrocs appear full. Areflexic in the lowers. There is a mid calf level to temperature. She is less dystaxic on [id number] and seems to have less dysmetria. [id number] remains abnormal. IMPRESSION AND PLAN: Probable Wernicke's encephalopathy. The elevated cerebrospinal fluid total protein is somewhat surprising in that regard. Await the final testing on cerebrospinal fluid including viral titers. If the patient continues to seem to be improving, I would advocate discharging her to rehabilitation. As an outpatient in rehabilitation, I would recommend a nerve conduction EMG to evaluate the peripheral nerve component of the weakness. I would recommend a followup MRI of the brain, probably in about 6 weeks. If the patient does not continue to improve, additional workup would need to be done and likely would need to include potential paraneoplastic etiologies. Fortunately, it appears that she has had a CTA of the chest, which included a CT of the chest. She has had a CT of the chest, abdomen and pelvis; however, paraneoplastic antibodies may need to be performed. We will follow with you.
[2020-07-27] MEDS: MIRTAZAPINE TAB 15 MG TAB PO SCH (20:19)
[2020-07-27] MEDS: LEVOTHYROXINE SODIUM 100 MCG TABLET PO SCH (20:20)
[2020-07-28] MEDS: METOPROLOL TARTRATE 1 MG/ML VIAL IV PRN
[2020-07-28] MEDS ORDERED: SODIUM PHOSPHATE 3 MMOL/1 ML INFUSION IV STA (06:52)
[2020-07-28] MEDS ORDERED: SODIUM PHOSPHATE 24 MMOL in SODIUM CHLORIDE 0.9% 500 ML IV ONE (07:30)
[2020-07-28] MEDS: POT PHOSPHATE MONOBASIC W/ SOD TAB PO SCH ×4 (07:56→20:08)
[2020-07-28] MEDS: METOPROLOL TARTRATE 25 MG TAB PO SCH ×2 (07:57→20:09)
[2020-07-28] MEDS: FOLIC ACID 1 MG TAB PO SCH (07:57)
[2020-07-28] MEDS: CYANOCOBALAMIN 500 MCG TABLET (VITAMIN B-12) PO SCH (07:57)
[2020-07-28] MEDS: PANTOprazole 40 MG TAB PO SCH ×2 (07:57→20:09)
[2020-07-28] MEDS: THIAMINE HCL 250 MG in SODIUM CHLORIDE 0.9% 50 ML IV SCH (07:58)
--- NOTE | 2020-07-28 12:40 | Hospitalist Progress Note ---
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 The patient initially presented to [facility] from her present facility for syncopal episode and had CT scan of her chest that was unremarkable. She was then referred to [facility] for further evaluation of her lower extremity weakness. She had MRI of the brain that was suggestive of Wernicke/Korsakoff syndrome. It was noted that the patient also likely had a psychiatric component to her symptoms. It was documented that she intermittently would not cooperate with physical therapy and so this may be why the patient was not discharged to a acute rehab facility. Patient reports she was discharged yesterday and today she was unable to get up." -as per admission notes that "Medical history significant for recent diagnosis of Korsakoff syndrome, past alcohol abuse, polycystic ovarian syndrome, hypothyroidism; Recent incarceration at a local correctional facility the last 2 months. Last month during incarceration, patient had an episode of emesis, noted to be confused and forgetful as per . As per , prison guards refused to bring patient to hospital. Last week, patient had a syncopal event and mentation issues leading to confinement at [facility]. Patient diagnosed to have Korsakoff syndrome. Patient discharged back to correctional facility a few days ago mentation back to baseline. Patient released from [facility] yesterday." -admission CT head showed no acute intracranial abnormality; she previously had brain MRI done at [facility] -Lumbar Puncture done showed elevated protein. 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 Shahid he discussed with an endocrine specialist and that this is unlikely because Antithyroid antibodies are far more elevated in typical Eric thyroiditis cases -neurology consult following the patient in the hospital and the working diagnosis is nonalcoholic Wernicke's encephalopathy -on daily IV thiamine supplement (IV thiamine 500mg x 2 days, then 250mg IV daily currently), daily folic acid -normal serum folic acid level and normal serum B12 level -neurology recommend for future outpatient care that she be referred for a nerve conduction EMG of 1 arm and 1 leg, preferably the right, to assess what appears to be a lower motor neuron or neuropathic process; a followup MRI of the brain 6 weeks after the initial with and without contrast; outpatient neurology clinic follow up -PT/OT evaluations, assess if need for inpatient physical therapy center after hospital stay Hypothyroidism -admission TSH is euthymic at this time -Continue levothyroxine home dose levothyroxine 100 mcg daily Tachycardia -patient was transferred from [facility] to telemetry on 07/27/2020 because of sinus tachycardia in the 120s, patient received IV fluids. Started on metoprolol 12.5 mg q12 hours with prn IV metoprolol 5 mg every 6 hours as needed for heart rates above 110 bpm. On exam, patient awake and alert and denies palpitations or chest pain or shortness of breath. breathing on room air. no apparent pain of the body. no nausea. no vomiting -echocardiogram performed on 07/28/2020, results pending, patient continues to have sinus tachycardia at rest despite current beta isabel therapy and continues to be asymptomatic - no chest pain, no palpitations, will review echocardiogram results and treatment changes depending on echocardiogram results Dysphagia -Speech therapy on board recommended easy to chew and slippery diet Hypokalemia -serum potassium 3.2 on admission -serum potassium has been repleted on this admission -Abnormal Urine Analysis -initial UA positive for Nitrite and bacteria but speciation of Staph species is likely skin santo or contaminant DVT prophylaxis. Lovenox subcutaneous CODE STATUS FULL CODE PT/OT evaluations currently recommending that patient can benefit with inpatient physical therapy center Patient's Mr. Jose Carlos Hagen, contact #[phone], and he requested that hospital contact patient's district resource officer because she is missing her probation meetings due to being hospitalized Admission and Anticipated Discharge Date Admission Date: July 24, 2020 Subjective -echocardiogram performed on 07/28/2020, results pending, patient continues to have sinus tachycardia at rest despite current beta isabel therapy and continues to be asymptomatic - no chest pain, no palpitations, will review echocardiogram results and treatment changes depending on echocardiogram results breathing on room air, no shortness of breath. no abdomen pain. no vomiting. no fever Review of Systems Review of Systems: All systems reviewed & are unremarkable except as noted in Subjective Physical Exam Constitutional: cooperative and comfortable Eyes: EOM intact bilaterally ENMT: external ear and nose normal, oropharynx normal Neck: normal visual inspection Respiratory: normal respiratory effort, lungs clear to auscultation Cardiovascular: Rate/Rhythm: + tachycardic Gastrointestinal (Abdomen): normal bowel sounds, soft, nontender, no hepatosplenomegaly Musculoskeletal: Head/Neck/Chest: normocephalic and head atraumatic Neurologic: PERRL, EOMI, accommodation nl, no face palsy, no dysarthria moves all extremities Psychiatric: A+Ox3, euthymic affect Results & Data Results & Data ([facility]) Vital Signs (Past 12 Hours) Vital Signs Temp Pulse Pulse Resp BP Pulse Ox 07/28/20 11:24 36.9 C 116 H 20 113/75 95 07/28/20 08:57 118 H 99/68 L 07/28/20 08:29 36.6 C 58 L 20 98/66 L 95 07/28/20 07:23 120 H 07/28/20 03:00 36.7 C 110 H 20 113/79 98 07/28/20 01:46 115 H
[2020-07-28 15:41] LABS: CMV DNA Qnt Real Time PCR <200 IU/mL (<200); CMV DNA Quant PCR <2.30 log IU/mL (<2.30); HSV Type 1 DNA Not Detected (Not Detected); HSV Type 1&2 DNA Source CSF; HSV Type 2 DNA Not Detected (Not Detected)
--- NOTE | 2020-07-28 17:44 | Progress Notes ---
DATE: 07/28/2020 SUBJECTIVE: I am seeing Mrs. Hagen in followup for apparent Wernicke's encephalopathy. To summarize, the patient had subacute onset of encephalopathy, gaze dysfunction and ataxia, which preceded a longterm stay, but worsened as she was incarcerated. There may have been a relative decrease in oral intake. The patient's MRI at [facility] the images of which have not become available to us, showed abnormal signal in the bilateral mammillary bodies, periventricular white matter and medial thalami. At that facility, an MRI of the thoracic spine was said to be normal. At our facility, an MRI of the cervical and lumbosacral spine were noncontributory. We have not received the thiamine level from the outside hospital. The patient has improved mildly with some improvement of eye movement and coordination in the upper extremities. A lumbar puncture showed an elevated total protein of approximately 109, which was acellular. Cultures are pending. MS serologies are pending as well. Her antimicrosomal antibody is somewhat elevated at 69. For some background, the patient has a history of hypothyroidism. When admitted to [place], her T4 was elevated and TSH was low. Her dose of thyroid replacement was reduced. Her course has also been notable for subjective orthostasis. Nursing has had difficulty checking for orthostatics because the patient has had difficulty standing. The patient has also had some unexplained tachycardia. PHYSICAL EXAMINATION: She is awake and alert. Her mentation is mildly slow, but she is oriented. Motility is notable for some horizontal nystagmus on extremes of gaze. There is upbeat nystagmus on upgaze and minimally limited downgaze. The downgaze appears improved from admission. There is no facial asymmetry or facial weakness. Motor; upper extremity is full. The iliopsoas is in the lower about 4, the quad on the right 3+ to 4, the left quad 4. Hamstrings are mildly weak. TAs and gastrocs are full. She is areflexic in the lower. Vibration sense is present in the toes and there is a mid calf level to temperature. Hemfur-[id number]-[id number] is still mildly dysmetric on the left, but better than it was on admission. I do not appreciate any dysdiadochokinesia. There is dystaxia on [id number]. IMPRESSION: Presumed thiamine deficiency based on history. Abnormal MRI of the brain supportive of thiamine deficiency and some mild improvement with treatment. Should the patient not continue to improve, additional workup would need to be performed. Her antithyroid antibodies are positive; from my understanding is the titer is a relatively low titer. We may want to consult with endocrinology to determine the likelihood that this is a Eric's encephalopathy, which may be steroid responsive. Other etiologies could be paraneoplastic etiology. She has had a CT of the abdomen and pelvis, and I am assuming an adequate CT of the chest given that she had a CTA. They did not show any evidence of malignancy. Paraneoplastic antibodies may be reasonable to perform if patient's symptoms persist. Similarly, if symptoms persist, an anti-NMDA should be obtained. The patient is to go to rehabilitation. I would recommend an outpatient nerve conduction EMG of 1 arm and 1 leg to determine the presence of what is apparently a lower motor neuron contribution to her weakness. Dr. Coronel will be taking over the service tomorrow.
[2020-07-28] MEDS: MIRTAZAPINE TAB 15 MG TAB PO SCH (20:08)
[2020-07-28] MEDS: LEVOTHYROXINE SODIUM 100 MCG TABLET PO SCH (20:10)
[2020-07-28 22:57] LABS: Anti Nuclear Antibody Screen NEGATIVE (NEGATIVE); B2 Glycoprotein IgA <9 SAU (<=20); B2 Glycoprotein IgG <9 SGU (<=20); B2 Glycoprotein IgM <9 SMU (<=20); Phosphatidylserine IgG <10 U/mL (<10); Phosphatidylserine IgM <25 U/mL (<25)
[2020-07-29] MEDS: POT PHOSPHATE MONOBASIC W/ SOD TAB PO SCH (08:07)
[2020-07-29] MEDS: PANTOprazole 40 MG TAB PO SCH (08:08)
[2020-07-29] MEDS: METOPROLOL TARTRATE 25 MG TAB PO SCH (08:08)
[2020-07-29] MEDS: CYANOCOBALAMIN 500 MCG TABLET (VITAMIN B-12) PO SCH (08:08)
[2020-07-29] MEDS: FOLIC ACID 1 MG TAB PO SCH (08:08)
[2020-07-29] MEDS: THIAMINE HCL 250 MG in SODIUM CHLORIDE 0.9% 50 ML IV SCH (08:14)
--- NOTE | 2020-07-29 10:51 | Hospitalist Progress Note ---
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 The patient initially presented to [facility] from her present facility for syncopal episode and had CT scan of her chest that was unremarkable. She was then referred to [place] for further evaluation of her lower extremity weakness. She had MRI of the brain that was suggestive of Wernicke/Korsakoff syndrome. It was noted that the patient also likely had a psychiatric component to her symptoms. It was documented that she intermittently would not cooperate with physical therapy and so this may be why the patient was not discharged to a acute rehab facility. Patient reports she was discharged yesterday and today she was unable to get up." -as per admission notes that "Medical history significant for recent diagnosis of Korsakoff syndrome, past alcohol abuse, polycystic ovarian syndrome, hypothyroidism; Recent incarceration at a local correctional facility the last 2 months. Last month during incarceration, patient had an episode of emesis, noted to be confused and forgetful as per . As per , group home guards refused to bring patient to hospital. Last week, patient had a syncopal event and mentation issues leading to confinement at [facility]. Patient diagnosed to have Korsakoff syndrome. Patient discharged back to correctional facility a few days ago mentation back to baseline. [facility]." -admission CT head showed no acute intracranial abnormality; she previously had brain MRI done at [place] -Lumbar Puncture done showed elevated protein. 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 Shahid he discussed with an endocrine specialist and that this is unlikely because Antithyroid antibodies are far more elevated in typical Eric thyroiditis cases -neurology consult following the patient in the hospital and the working diagnosis is nonalcoholic Wernicke's encephalopathy -on daily IV thiamine supplement (IV thiamine 500mg x 2 days, then 250mg IV daily currently), daily folic acid -normal serum folic acid level and normal serum B12 level -neurology recommend for future outpatient care that she be referred for a nerve conduction EMG of 1 arm and 1 leg, preferably the right, to assess what appears to be a lower motor neuron or neuropathic process; a followup MRI of the brain 6 weeks after the initial with and without contrast; outpatient neurology clinic follow up anti-NMDA lab ordered to be drawn on 07/29/2020 at [facility] prior to patient being discharged to [facility] as suggested by neurology note on 07/28/2020 Hypothyroidism -admission TSH is euthymic at this time -Continue levothyroxine home dose levothyroxine 100 mcg daily Tachycardia, asymptomatic -patient was transferred from [facility] to telemetry on 07/27/2020 because of sinus tachycardia in the 120s, patient received IV fluids. Started on metoprolol 12.5 mg q12 hours with prn IV metoprolol 5 mg every 6 hours as needed for heart rates above 110 bpm. On exam, patient awake and alert and denies palpitations or chest pain or shortness of breath. breathing on room air. no apparent pain of the body. no nausea. no vomiting -echocardiogram performed on 07/28/2020, results pending, patient continues to have sinus tachycardia at rest despite current beta isabel therapy and continues to be asymptomatic - no chest pain, no palpitations, will review echocardiogram results and treatment changes depending on echocardiogram results -heart rates better on metoprolol 25 mg BID, continue on discharge Dysphagia -Speech therapy on board recommended easy to chew and slippery diet -no choking while inpatient Hypokalemia -serum potassium 3.2 on admission -serum potassium has been repleted on this admission -Abnormal Urine Analysis -initial UA positive for Nitrite and bacteria but speciation of Staph species is likely skin santo or contaminant DVT prophylaxis. Lovenox subcutaneous CODE STATUS FULL CODE PT/OT evaluations currently recommending that patient can benefit with inpatient physical therapy center Patient's Mr. Jose Carlos Hagen, contact #[phone], and he requested that hospital contact patient's executive vice president and chief operating officer because she is missing her probation meetings due to being hospitalized discharge to [facility] Patient's correction officer is Torrey Rajan from [employer] of [facility] on [address], [address] [place] [address]. Phone is [phone] ext. [phone] or . Hospital has notified probation services of this hospital admission. But [facility] can provide further updates to probation services since typically patient is to check in with executive vice president and chief operating officer on SaturdayAugust 31. scheduled appointments 08/01/2020 2:40 PM Provider Brenna Larson MD Department Internal Medicine [facility] 08/11/2020 11:20 AM Provider Cristin Salomon PA-C Department Neurology [facility] (anti-NMDA lab ordered to be drawn on 07/29/2020 at [facility] prior to patient being discharged to [facility] as suggested by neurology note on 07/28/2020) (inpatient neurology recommend for future outpatient care that she be referred for a nerve conduction EMG of 1 arm and 1 leg, preferably the right, to assess what appears to be a lower motor neuron or neuropathic process; a followup MRI of the brain 6 weeks after the initial with and without contrast; outpatient neurology clinic follow up) Admission and Anticipated Discharge Date Admission Date: July 24, 2020 Subjective Patient's heart rates better while on current dose of metoprolol. denies chest pain or shortness of breath. no dizziness. no headache. patient had hard to time working with therapy today. Patient is accepted to [facility] for further physical rehabilitation Review of Systems Review of Systems: All systems reviewed & are unremarkable except as noted in Subjective Physical Exam Constitutional: cooperative and comfortable Eyes: EOM intact bilaterally ENMT: external ear and nose normal, oropharynx normal Neck: normal visual inspection Respiratory: normal respiratory effort, lungs clear to auscultation Cardiovascular: Rate/Rhythm: regular rate heart rates better in the high 90s or low 100s Gastrointestinal (Abdomen): normal bowel sounds, soft, nontender, no hepatosplenomegaly Musculoskeletal: Head/Neck/Chest: normocephalic and head atraumatic Neurologic: PERRL, EOMI, accommodation nl, no face palsy, no dysarthria moves all extremities Psychiatric: A+Ox3, euthymic affect Results & Data Results & Data ([facility]) Vital Signs (Past 12 Hours) Vital Signs Temp Pulse Pulse Pulse Pulse Resp BP 07/29/20 10:33 105 H 07/29/20 07:16 37.1 C 99 H 18 120/85 07/29/20 04:47 31.7 C L 97 H 17 123/86 07/28/20 23:36 100 H 07/28/20 23:00 37.2 C 94 H 18 BP Pulse Ox 07/29/20 10:33 07/29/20 07:16 98 07/29/20 04:47 98 07/28/20 23:36 07/28/20 23:00 111/75 98
--- NOTE | 2020-07-29 10:55 | Discharge Summary ---
Date of Service July 29, 2020 Admission HPI Per Admitting Provider History obtained from patient, family, and records. Patient is a fair historian. Medical history significant for recent diagnosis of Korsakoff syndrome, past alcohol abuse, polycystic ovarian syndrome, hypothyroidism. Recent incarceration at a local correctional facility the last 2 months. Last month during incarceration, patient had an episode of emesis, noted to be confused and forgetful as per . As per , shelter guards refused to bring patient to hospital. Last week, patient had a syncopal event and mentation issues leading to confinement at [facility]. Patient diagnosed to have Korsakoff syndrome. Patient discharged back to correctional facility a few days ago mentation back to baseline. Patient released from [facility] yesterday. At home, appetite fair as per . Patient however having trouble walking around, feeling weak. No headache, no chest pain, no S OB. No abdominal pain, no dysuria/urinary frequency symptoms. Patient denies recent EtOH intake since [facility] from [facility]. Patient brought to the ER for evaluation. Medical History as above Surgical History : Tonsillectomy, D&C Family History : Heart disease, diabetes Personal/Social history : Non-smoker, past alcohol abuse, currently unemployed . Principal Diagnosis Generalized weakness: Nonalcoholic Wernicke's encephalopathy from (Presumed thiamine deficiency based on history. Abnormal MRI of the brain supportive of thiamine deficiency and some mild improvement with treatment; thiamine vitamin B1 levels from 07/25/2020 are still pending) Hypothyroidism asymptomatic Tachycardia Discharge Exam Constitutional cooperative and comfortable Eyes EOM intact bilaterally ENMT external ear and nose normal, oropharynx normal Neck normal visual inspection Respiratory normal respiratory effort, lungs clear to auscultation Cardiovascular Rate/Rhythm: regular rate Gastrointestinal (Abdomen) normal bowel sounds, soft, nontender, no hepatosplenomegaly Musculoskeletal Head/Neck/Chest: normocephalic and head atraumatic Neurologic PERRL, EOMI, accommodation nl, no face palsy, no dysarthria moves all extremities Psychiatric A+Ox3, euthymic affect Discharge Data Allergies Allergy/AdvReac Type Severity Reaction Status Date / Time No Known Allergies Allergy Verified 07/22/20 23:16 Consultations 07/23/20 00:07 ED Decision to Admit Stat 07/23/20 01:51 Consult Case Management - Discharge Planning Routine 07/24/20 08:00 Consult Neurology Routine Ordered Studies 07/22/20 20:42 CT head/brain wo con Stat 07/26/20 08:09 MR cervical spine wo/w con Routine 07/26/20 08:10 MR lumbar spine wo/w con Routine 07/26/20 20:20 FL lumbar puncture diagnostic Routine Hospital Course (1) Generalized weakness: nonalcoholic Wernicke's encephalopathy -Presumed thiamine deficiency based on history. Abnormal MRI of the brain supportive of thiamine deficiency and some mild improvement with treatment; thiamine vitamin B1 levels from 07/25/2020 are still pending -as per ED notes on 07/22/2020: "The patient is a pleasant 34-year-old woman who presents emerged department coming by her partner with persistent lower extremity weakness and difficulty with coordination in setting of being admitted for the past week at [facility] ultimately diagnosed with Wernic ke's/Korsakoff syndrome thought to be unrelated to alcohol. The patient initially presented to [facility] from her present facility for syncopal episode and had CT scan of her chest that was unremarkable. She was then referred to [place] for further evaluation of her lower extremity weakness. She had MRI of the brain that was suggestive of Wernicke/Korsakoff syndrome. It was noted that the patient also likely had a psychiatric component to her symptoms. It was documented that she intermittently would not cooperate with physical therapy and so this may be why the patient was not discharged to a acute rehab facility. Patient reports she was discharged yesterday and today she was unable to get up." -as per admission notes that "Medical history significant for recent diagnosis of Korsakoff syndrome, past alcohol abuse, polycystic ovarian syndrome, hypothyroidism; Recent incarceration at a local correctional facility the last 2 months. Last month during incarceration, patient had an episode of emesis, noted to be confused and forgetful as per . As per , shelter guards refused to bring patient to hospital. Last week, patient had a syncopal event and mentation issues leading to confinement at [facility]. Patient diagnosed to have Korsakoff syndrome. Patient discharged back to correctional facility a few days ago mentation back to baseline. Patient released from [facility] yesterday." -admission CT head showed no acute intracranial abnormality; she previously had brain MRI done at [place] (Abnormal MRI of the brain supportive of thiamine d eficiency and some mild improvement with treatment. ) -Lumbar Puncture done showed elevated protein. 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 Shahid he discussed with an endocrine specialist and that this is unlikely because Antithyroid antibodies are far more elevated in typical Eric thyroiditis cases -neurology consult following the patient in the hospital and the working diagnosis is nonalcoholic Wernicke's encephalopathy -while in this hospital stay, patient was given daily IV thiamine supplement (IV thiamine 500mg x 2 days, then 250mg IV daily currently), daily folic acid, daily thiamine orally on discharge -normal serum folic acid level and normal serum B12 level -thiamine vitamin B1 levels from 07/25/2020 are still pending -neurology recommend for future outpatient care that she be referred for a nerve conduction EMG of 1 arm and 1 leg, preferably the right, to assess what appears to be a lower motor neuron or neuropathic process; a followup MRI of the brain 6 weeks after the initial with and without contrast; outpatient neurology clinic follow up anti-NMDA lab ordered to be drawn on 07/29/2020 at [facility] prior to patient being discharged to [facility] as suggested by neurology note on 07/28/2020 Hypothyroidism -admission TSH is euthymic at this time -Continue levothyroxine home dose levothyroxine 100 mcg daily Tachycardia, asymptomatic -patient was transferred from [facility] to telemetry on 07/27/2020 because of sinus tachycardia in the 120s, patient received IV fluids. Started on metoprolol 12.5 mg q12 hours with prn IV metoprolol 5 mg every 6 hours as needed for heart rates above 110 bpm. On exam, patient awake and alert and denies palpitations or chest pain or shortness of breath. breathing on room air. no apparent pain of the body. no nausea. no vomiting -echocardiogram performed on 07/28/2020, results pending, patient continues to have sinus tachycardia at rest despite current beta isabel therapy and continues to be asymptomatic - no chest pain, no palpitations, will review echocardiogram results and treatment changes depending on echocardiogram results -heart rates better on metoprolol 25 mg BID, continue on discharge Dysphagia -Speech therapy on board recommended easy to chew and slippery diet -no choking while inpatient Hypokalemia -serum potassium 3.2 on admission -serum potassium has been repleted on this admission -Abnormal Urine Analysis -initial UA positive for Nitrite and bacteria but speciation of Staph species is likely skin santo or contaminant DVT prophylaxis. Lovenox subcutaneous CODE STATUS FULL CODE PT/OT evaluations currently recommending that patient can benefit with inpatient physical therapy center Patient's Mr. Jose Carlos Hagen, contact #[phone], and he requested that hospital contact patient's youth liaison officer because she is missing her probation meetings due to being hospitalized discharge to [facility] Patient's traffic maintenance officer is Torrey Rajan from [employer] of [facility] on [address], [address] [place] [address]. Phone is [phone] ext. [phone] or . Hospital has notified probation services of this hospital admission. But [facility] can provide further updates to probation services since typically patient is to check in with youth liaison officer on SaturdayAugust 31. scheduled appointments 08/01/2020 2:40 PM Provider Brenna Larson MD Department Internal Medicine [facility] 08/11/2020 11:20 AM Provider Cristin Salomon PA-C Department Neurology [facility] (anti-NMDA lab ordered to be drawn on 07/29/2020 at [facility] prior to patient being discharged to [facility] as suggested by neurology note on 07/28/2020) (inpatient neurology recommend for future outpatient care that she be referred for a nerve conduction EMG of 1 arm and 1 leg, preferably the right, to assess what appears to be a lower motor neuron or neuropathic process; a followup MRI of the brain 6 weeks after the initial with and without contrast; outpatient neurology clinic follow up) Total Time Total Time Spent Total Time Spent (In Minutes): 40 minutes Total Time Includes: Examination of the Patient, Discharge Planning, Medication Reconciliation and Communication With Other Providers Discharge Plan Discharge Items Patient Disposition: Transfer Inpatient Rehab Fac Reason For Visit: WEAKNESS, TACHY Discharge Diagnosis: Generalized weakness: Nonalcoholic Wernicke's encephalopathy from (Presumed thiamine deficiency based on history. Abnormal MRI of the brain supportive of thiamine deficiency and some mild improvement with treatment; thiamine vitamin B1 levels from 07/25/2020 are still pending) Hypothyroidism asymptomatic Tachycardia Condition on Discharge: Fair Activity: Per Instructions section Non-emergency contact: Primary Care Provider and Neurologist Call non-emergency contact if: you have any medication questions Follow-up/Referrals: Vicky Ta MD [Primary Care Provider] - Diet: Regular Diet Texture: Easy to Chew Addtl Attending Provider Instructions: discharge to [facility] Patient's traffic maintenance officer is Torrey Rajan from [employer] of [facility] on [address], [address] [place] [address]. Phone is [phone] ext. [phone] or . [facility] has notified probation services of this hospital admission. But [facility] can provide further updates to probation services since typically patient is to check in with youth liaison officer on SaturdayAugust 31. scheduled appointments 08/01/2020 2:40 PM Provider Brenna Larson MD Department Internal Medicine [facility] 08/11/2020 11:20 AM Provider Cristin Salomon PA-C Department Neurology [facility] (anti-NMDA lab ordered to be drawn on 07/29/2020 at [facility] prior to patient being discharged to [facility] as suggested by neurology note on 07/28/2020) (inpatient neurology recommend for future outpatient care that she be referred for a nerve conduction EMG of 1 arm and 1 leg, preferably the right, to assess what appears to be a lower motor neuron or neuropathic process; a followup MRI of the brain 6 weeks after the initial with and without contrast; outpatient neurology clinic follow up) Pending Studies at Discharge: No Studies:: thiamine vitamin B1 levels from 07/25/2020 are still pending anti-NMDA lab ordered to be drawn on 07/29/2020 at [facility] prior to patient being discharged to [facility] as suggested by neurology note on 07/28/2020 Stand-Alone Forms: [facility] Skilled Items Patient informed of condition?: Yes DNR: No Discharge Level of Care: Acute rehab Communicable Disease: No Discharge Prognosis: Stable Lines: None Urinary Catheter: No Medications and DC Order Prescriptions: New folic acid 1 mg Tablet 1 mg PO QAM 30 Days Qty: 30 RF: 0 metoprolol tartrate 25 mg Tablet 25 mg PO BID 30 Days Qty: 60 RF: 0 Continued cyanocobalamin (vitamin B-12) [Vitamin B-12] 1,000 mcg Tablet 1,000 mcg PO DAILY RF: 0 thiamine HCl (vitamin B1) [Vitamin B-1] 100 mg Tablet 100 mg PO DAILY RF: 0 levothyroxine 100 mcg tablet 100 mcg PO HS RF: 0 pantoprazole 40 mg tablet,delayed release (DR/EC) 40 mg PO BID RF: 0 ergocalciferol (vitamin D2) [Vitamin D2] 1,250 mcg (50,000 unit) Capsule 1,250 mcg PO WK RF: 0 mirtazapine 15 mg Tablet 15 mg PO HS RF: 0 Discharge Orders: Discharge Order (Routine); Ordered 07/29/20 Ordered By: Ye Perez Admission Data Admit Date/Time: 07/24/20 07:41 Attending Provider: Ye Perez Admit Provider: Diego Rankin Primary Care Provider: Vicky Ta Other Providers: [facility] ; [facility] ; [facility] ; Diego Rankin ; Cristin Vicente
[2020-07-29 14:17] LABS: Microsomal Ab 68 IU/mL (<9)
[2020-07-30] MEDS ORDERED: THIAMINE HCL 100 MG TAB PO SCH (09:00)
[2020-08-06 04:56] LABS: Albumin 2.8 g/dL (3.5-5.2); Albumin, CSF 49.7 mg/dL (8.0-42.0); IgG CSF 9.2 mg/dL (0.8-7.7); IgG Index, CSF 0.61 (<0.66); IgG Serum 854 mg/dL (600-1640); Lyme IgG Band Pattern CSF DNR; Lyme IgG CSF NO BANDS DETECTED; Lyme IgM Band Pattern CSF DNR; Lyme IgM CSF NO BANDS DETECTED; Myelin Basic Protein <2.0 mcg/L (2.0-4.0); Synthesis Rate, IgG CSF 9.8 mg/24 h (-9.9-3.3); VDRL Qualitative CSF Nonreactive (Nonreactive); VZ DNA Source CSF; Varicella Zoster Virus DNA PCR Not Detected (Not Detected)
== END 2020-07-29 15:00 | DRG 641 ==
LOC: 2N 19:40 → ED 19:40 → 2N 07-23 01:31 → SUATTDRO 07-24 07:41 → 3N 07-25 09:51 → 2N 07-27 07:31